=== PATIENT | female | born 1990 | race Caucasian/White ===

== ENCOUNTER 2022-08-17 15:46 | Emergency (ER) | payer OTHER, SELFPAY ==
--- NOTE | ~2022-08-17 | CT_ITS ---
EXAMINATION: CT HEAD WITHOUT CONTRAST CT CERVICAL SPINE WITHOUT CONTRAST CLINICAL INFORMATION: Seizure COMPARISON: None TECHNIQUE: A noncontrast CT of the head and a noncontrast CT of the cervical spine with sagittal and coronal reformats. This CT examination was performed using dose optimization techniques as appropriate, variously including the following: *Automated exposure control *Adjustment of mA and/or kV according to patient size (this includes techniques or standardized protocols for targeted exams where dose is matched to indication/reason for exam; i.e. extremities or head) *Use of iterative reconstruction technique DLP: 1310 FINDINGS: No intra-axial or extra-axial hemorrhage. No acute territorial infarct. Ventricles and sulci appear normal. Preservation of vazquez-white matter differentiation. No mass, mass effect, or midline shift. No fracture. The mastoid air cells and visualized paranasal sinuses are clear. Normal alignment of the cervical spine. No fracture. No prevertebral soft tissue swelling. CT/CT head/brain wo IV con IMPRESSION: No acute intracranial abnormality. No cervical spine fracture or traumatic subluxation.
--- NOTE | ~2022-08-17 | CT_ITS ---
EXAMINATION: CT HEAD WITHOUT CONTRAST CT CERVICAL SPINE WITHOUT CONTRAST CLINICAL INFORMATION: Seizure COMPARISON: None TECHNIQUE: A noncontrast CT of the head and a noncontrast CT of the cervical spine with sagittal and coronal reformats. This CT examination was performed using dose optimization techniques as appropriate, variously including the following: *Automated exposure control *Adjustment of mA and/or kV according to patient size (this includes techniques or standardized protocols for targeted exams where dose is matched to indication/reason for exam; i.e. extremities or head) *Use of iterative reconstruction technique DLP: 1310 FINDINGS: No intra-axial or extra-axial hemorrhage. No acute territorial infarct. Ventricles and sulci appear normal. Preservation of vazquez-white matter differentiation. No mass, mass effect, or midline shift. No fracture. The mastoid air cells and visualized paranasal sinuses are clear. Normal alignment of the cervical spine. No fracture. No prevertebral soft tissue swelling. CT/CT cervical spine wo IV con IMPRESSION: No acute intracranial abnormality. No cervical spine fracture or traumatic subluxation.
[2022-08-17 16:54] VITALS: BP 125/78; PULSE 69; RESP 18; TEMP 37.7; O2SAT 97; BMI 31.3
--- NOTE | 2022-08-17 18:13 | ECG_ITS ---
Test Reason : WEAKNESS Blood Pressure : / mmHG Vent. Rate : 065 BPM Atrial Rate : 065 BPM P-R Int : 126 ms QRS Dur : 102 ms QT Int : 442 ms P-R-T Axes : 045 037 030 degrees QTc Int : 459 ms Normal sinus rhythm Low voltage QRS RSR' or QR pattern in V1 suggests right ventricular conduction delay Otherwise normal ECG No previous ECGs available Referred By: Generic ED Physician Electronically Signed By:KAYLAN GONSALVES MD
[2022-08-17 18:57] LABS: MANUAL DIFF FLAG NO
[2022-08-17 19:11] LABS: Basophils Absolute Auto 0.1 X10*3/uL (0.0-0.2); Basophils Percent Auto 0.4 % (0-2); Eosinophils Absolute Auto 0.1 X10*3/uL (0.0-0.4); Eosinophils Percent Auto 0.7 % (0-4); Hematocrit 39.9 % (37.0-47.0); Hemoglobin 13.3 g/dl (12.0-16.0); Imm Gran Abs Auto 0.09 X10*3/uL (0.00-0.03); Imm Gran Pct Auto 0.8 % (0.0-0.4); Lymphocytes Absolute Auto 2.7 X10*3/uL (1.2-4.9); Lymphocytes Percent Auto 22.7 % (20-40); Mean Corpuscular HGB Conc 33.3 g/dl (31.0-35.0); Mean Corpuscular Volume 80.9 fL (80.0-98.0); Mean Platelet Volume 10.3 fL (9.4-12.3); Monocytes Absolute Auto 0.7 X10*3/uL (0.1-1.2); Monocytes Percent Auto 5.5 % (2-11); Neutrophils Absolute Auto 8.2 x10*3/uL (2.0-8.3); Neutrophils Percent Auto 69.9 % (45-73); Platelet Count 275 X10*3/uL (160-400); Red Blood Count 4.93 X10*6/uL (4.20-5.50); Red Cell Distribution Width 13.1 % (11.0-16.0); White Blood Count 11.7 X10*3/uL (4.8-10.8)
[2022-08-17 19:19] LABS: Alanine Aminotransferase 15 U/L (0-31); Albumin Level 4.8 g/dL (3.5-5.0); Alkaline Phosphatase 67 U/L (39-117); Anion Gap 16 (12-20); Aspartate Amino Transferase 19 U/L (5-31); Bilirubin Direct < 0.2 mg/dL (0.0-0.5); Bilirubin Total 0.3 mg/dL (0.0-1.0); Blood Urea Nitrogen 9 mg/dL (9-16); Calcium 9.1 mg/dL (8.4-10.2); Carbon Dioxide 24 mmol/L (22-29); Chloride 101 mmol/L (96-108); Creatinine Clr Calc Pharmacy 120.8; Estimated Glomerular Filt Rate > 60; Glucose Random 97 mg/dL (60-115); Lipase 12 U/L (8-78); Potassium 3.7 mmol/L (3.3-5.1); Sodium 137 mmol/L (135-145); Total Protein 7.4 g/dL (6.5-8.0)
[2022-08-17 19:22] LABS: Troponin-I High Sensitivity < 3.5 ng/L (<3.5-17.0)
--- OUTSIDE RECORDS SUMMARY | 2022-08-17 23:45 | XMS_ITS ---
:1990 Author Care Team Providers Name Role Phone Anuja Orozco Primary Care Provider Unavailable Allergies Code Code System Name Reaction Severity Status Onset NKDA ? Medications Name Status Start Date Stop Date ? ? ketorolac 60 mg/2 mL intramuscular solution Active ? Not available Inject 2 mL every day by intramuscular route for 1 day. metronidazole 0.75 % (37.5 mg/5 gram) vaginal gel Completed ? 05/22/2020 naproxen 500 mg tablet Active ? Not avail able TAKE 1 TABLET(S) TWICE A DAY BY ORAL ROUTE NEEDED FOR 14 DAY S. Problems Name Status Onset Date Source ? Chronic Depression Active 05/22/2020 ? Epilepsy Active 05/22/2020 ? Acute Low Back Pain Active 05/22/2020 ? Procedures None recorded. Results Lab Results None recorded. Past Encounters None recorded. Social History Tobacco Smoking Status Never Smoker Vaccine List None recorded. Plan of Care Reminders Provider Appointments None recorded. ? ? Lab None recorded. ? ? Referral None recorded. ? ? Procedures None recorded. ? ? Surgeries None recorded. ? ? Imaging None recorded. ? ? Vitals Blood Pressure 108/65 mm[Hg]
== END 2022-08-18 01:06 | disposition left against medical advice (07) ==
PROVIDERS: Emergency Provider Emergency Medicine
DX: R56.9 Unspecified convulsions (principal); S09.93XA Unspecified injury of face, initial encounter; X58.XXXA Exposure to other specified factors, initial encounter; M25.512 Pain in left shoulder; M25.511 Pain in right shoulder; F41.9 Anxiety disorder, unspecified; F32.A Depression, unspecified; Z79.899 Other long term (current) drug therapy; Y93.84 Activity, sleeping; Y92.038 Other place in apartment as the place of occurrence of the external cause; Y99.9 Unspecified external cause status
CPT/HCPCS: 36415; 70450; 72125; 80053; 82248; 83690; 84484; 85025; 93005; 99283; 99284

== ENCOUNTER 2022-09-13 12:42 | Outpatient (REF) | payer OTHER, SELFPAY ==
--- NOTE | 2022-09-13 12:51 | EEG_ITS ---
PROCEDURE PERFORMED: 24-hour ambulatory EEG. Waking background activity consists of a well-defined, moderate voltage 10 hertz posterior alpha frequency intermixed anteriorly with low-voltage fast frequencies. Drowsiness is characterized by diffuse theta slowing. During sleep, symmetrical frontal central spindles, vertex sharp transients, and K complexes are noted. During deeper stages of sleep, delta frequencies are noted. Arousals are frequent as the patient slept on an off, and they were unremarkable. On a couple of occasions, sharp configuration alpha frequency activities noted in the left temporal region of questionable significance. IMPRESSION: This 24-hour ambulatory EEG is essentially normal except for rare episodes of sharp configuration alpha frequency discharges from the left temporal region that may suggest minimal cerebral irritability. These findings are not developed well enough to be diagnostic for a seizure disorder. Clinical correlation is suggested. MD JUAN Brannon/MARYBETH / [id number]
== END 2022-09-13 12:43 | disposition home or self-care (01) ==
LOC: HO.NEURO 12:42
PROVIDERS: Visit Provider Psychiatry & Neurology Neurology
DX: G40.909 Epilepsy, unspecified, not intractable, without status epilepticus (principal)
CPT/HCPCS: 95708; 95957

== ENCOUNTER 2022-10-09 11:58 | Outpatient (REF) | payer OTHER, SELFPAY ==
[2022-10-09 13:08] LABS: Valproate 40.7 mcg/mL (50.0-100.0)
[2022-10-09 13:34] LABS: Alanine Aminotransferase 12 U/L (0-31); Albumin Level 4.5 g/dL (3.5-5.0); Alkaline Phosphatase 70 U/L (39-117); Aspartate Amino Transferase 15 U/L (5-31); Bilirubin Direct < 0.2 mg/dL (0.0-0.5); Bilirubin Total 0.3 mg/dL (0.0-1.0); Total Protein 7.2 g/dL (6.5-8.0)
== END 2022-10-09 11:59 | disposition home or self-care (01) ==
LOC: HO.LAB 11:58
PROVIDERS: Visit Provider Psychiatry & Neurology Neurology
DX: G40.909 Epilepsy, unspecified, not intractable, without status epilepticus (principal); Z79.899 Other long term (current) drug therapy
CPT/HCPCS: 36415; 80076; 80164

== ENCOUNTER 2022-11-08 11:58 | Outpatient (REF) | payer OTHER, SELFPAY | END 2022-11-08 11:59 | disposition home or self-care (01) | LOC: HO.LAB 11:58 | PROVIDERS: PCP Nurse Practitioner Family; Visit Provider Psychiatry & Neurology Neurology | DX: G40.909 Epilepsy, unspecified, not intractable, without status epilepticus (principal); Z79.899 Other long term (current) drug therapy | CPT/HCPCS: 36415; 80164 ==

== ENCOUNTER 2023-09-25 13:16 | Outpatient (REF) | payer OTHER, SELFPAY ==
[2023-09-28 15:43] LABS: Lamotrigine Lamictal 4.4 mcg/mL (2.5-15.0)
== END 2023-09-25 13:17 | disposition home or self-care (01) ==
LOC: HO.LAB 13:16
PROVIDERS: Visit Provider Registered Nurse
DX: G40.909 Epilepsy, unspecified, not intractable, without status epilepticus (principal); Z79.899 Other long term (current) drug therapy
CPT/HCPCS: 36415; 80175

== ENCOUNTER 2024-03-13 12:52 | Outpatient (AMB) | payer OTHER, SELFPAY ==
[2024-03-13 12:56] VITALS: BP 128/58; PULSE 71; RESP 18; O2SAT 96; BMI 36.9
--- NOTE | 2024-03-13 12:56 | A.OFFPC_ITS ---
Vital Signs 03/13/24 12:56 03/13/24 13:29 Height 5 ft 6 in Weight 228 lb 8 oz BMI 36.9 BP 128/58 L 100/64 Blood Pressure Location Lt brachial Lt brachial Position Sitting Respiration 18 Pulse 71 Pulse Source Pulse Oximeter Pulse Oximetry (%) 96 Oxygen Delivery Method Room Air Intake Visit Reasons: Establish Care Intake Note: Patient is here as a new patient, looking to establish care, she needs thyroid medicine, has not had any in 2 years. Is last menstrual period known: Yes Last menstrual period: 03/12/24 Allergies No Known Allergies Allergy (Verified 03/13/24 13:22) Medication List - Last Reviewed 03/13/24 by Nicole Lutz, GARTH etonogestrel (Nexplanon) subdermal lamotrigine 100 mg PO BID levothyroxine 50 mcg PO DAILY Tobacco use date assessed: 03/13/24 Dental Screening Dental Screen Date: 03/13/24 Did you have a dental visit in the last 12 months?: Yes Did you have a dental problem in the last 6 months where you did not have access to dental care?: No Was dental information given to patient?: Patient has dentist HPI HPI Comments History of Present Illness Details New patient Prior PCP:?[facility], [facility] Last office visit/labs/CPE: About 2 years Acute issue(s): Hyperthyroidism -She is on levothyroxine 50 mcg daily Epilepsy - She is on Lamotrigine 100mg BID. Expe rienced grand mal seizure 2 year ago Anxiety and depression -She was on hydroxyzine Sertraline until 2 years ago -She has been doing weekly telemedicine psychotherapy for the past 3 years She reports controlled anxiety and depression. She notes recent stressors d/t lung cancer diagnosis of her father, yesterday, and other personal and family stressors She that she has been eating significant amount of unhealthy foods and snacks and have not been able to resist the urge to eat for the past 6 years. She has gained about 48 lb in the past 8-9 years PMHx: Epilepsy, hyperthyroidism, anxiety, depression SurgHx: [place] teeth extraction FHx: Mom: Diabetes, obesity, depression. Dad: Lung cancer, substance use disorder SocHx: Does not smoke cigarettes. Does not drink alcohol. No recreational drugs. 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 1. Little interest or pleasure in doing things: more than half the days 2. Feeling down, depressed, or hopeless: several days 3. Trouble falling or staying asleep, or sleeping too much: more than half the days 4. Feeling tired or having little energy: nearly every day 5. Poor appetite or overeating: nearly every day 6. Feeling bad about yourself - or that you are a failure or have let yourself or your family down: nearly every day 7. Trouble concentrating on things, such as reading the newspaper or watching television: not at all 8. Moving or speaking so slowly that other people could have noticed. Or the opposite - being so fidgety or restless that you have been moving around a lot more than usual: not at all 9. Thoughts that you would be better off or of hurting yourself in some way: not at all Total score: 14 Depression Screening Interpretation: Positive Depression Screening Follow-up: Existing condition and In treatment Depression Screening Done: Yes Source: Developed by Drs. Kevin Mares, Maddison Dias, Michael Urena and colleagues, with an educational cooper from [employer]. Thrive Questionnaire Date Thrive assessed: 03/13/24 I am a: Patient What is your living situation today?: I have a steady place to live Within the past 12 months, did the food you bought not last and you didn't have the money to get more?: Never true Within the past 12 months, did you worry whether your food would run out before you got money to buy more?: Never true Do you have trouble paying for medicines?: No Do you have trouble getting transportation to medical appointments?: No Do you have trouble paying your heating and electricity bill?: No Do you have trouble taking care of your child, family member or friend?: No Do you have trouble with day-to-day activities such as bathing, preparing meals, shopping, managing finances, etc.?: No Are you currently unemployed and looking for a job?: Yes Are you interested in more education?: No THRIVE Score: 0 AUDIT C Alcohol Use Questionnaire (AUDIT-C) 1. How often do you have a drink containing alcohol?: Never 3. How often do you have six or more drinks on one occasion?: Never Total Score: 0 SAMANTHA-7 AMB Questionnaire SAMANTHA-7 Date SAMANTHA - 7 assessed: 03/13/24 Feeling nervous, anxious, or on edge: 3 = Nearly every day Not being able to stop or control worryin = More than half the days Worrying too much about different things: 2 = More than half the days Trouble relaxin = Nearly every day Being so restless that it is hard to sit still: 1 = Several days Becoming easily annoyed or irritable: 0 = Not at all Feeling afraid as if something awful might happen: 0 = Not at all Total SAMANTHA-7 score (0-4 normal; 5-9 mild; 10-14 moderate; 15-21 severe): 11 Source: Developed by Drs. Kevin Mares, Maddison Dias, Michael Urena and colleagues, with an educational cooper from [employer]. Review of Systems Const Details: Const Denies chills, Denies fatigue, Denies fever(s), Denies headache(s) and Denies weakness ENT Denies dizziness and Denies headache(s) Card Denies chest pain, Denies lightheadedness, Denies dyspnea and Denies other (Palpitations) Resp Denies cough, Denies dyspnea, Denies wheezing and Denies other ( shortness of br eath) GI Denies abdominal pain, Denies melena, Denies hematochezia, Denies change in bowel habits, Denies dyspepsia and Denies nausea Denies hematuria and Denies dysuria Musc Denies abnormal gait, Denies myalgias, Denies arthralgias, Denies numbness and Denies tingling Skin/Breast Denies rash, Denies unusual bruising and Denies wounds Neuro Denies abnormal gait, Denies dizziness, Denies headache(s), Denies memory loss, Denies numbness, Denies Sensory deficit (Neuro), Denies tingling and Denies weakness Psych Denies anxiety, Denies depression, Denies memory loss Endo Denies cold intolerance, Denies fatigue, Denies heat intolerance, Denies polydipsia and Denies polyuria Aller/Immun Denies wheezing Physical exam (Primary Care) Vital Signs: Last Vital Signs Pulse 71 03/13/24 12:56 Resp 18 03/13/24 12:56 BP 100/64 03/13/24 13:29 Pulse Ox 96 03/13/24 12:56 Oxygen Delivery Method Room Air 03/13/24 12:56 BMI result Body Mass Index 36.9 Tobacco/Smoking Status: Tobacco use Status Tobacco use date assessed 03/13/24 03/13/24 13:26 Patient Tobacco Use Status Never used Tobacco 03/13/24 13:26 e-Cigarette/Vaping Use Never Used 03/13/24 13:26 PHQ-9: PHQ-9 Score PHQ-9: Total score 14 03/13/24 13:26 Depression Screening Interpretation: Positive Depression Screening Follow-up: Existing condition and In treatment Thrive Assessment: Date of Thrive Assessment Date Thrive assessed 03/13/24 03/13/24 13:26 Const Other: General: no acute distress and well developed Nutritional Appearance: well nourished Orientation/consciousness: patient oriented x3 HENMT Head: Yes normocephalic and Yes atraumatic Eyes General: appearance normal, both eyes and all related structures Pupils: Equal, round and reactive pupils present EOM: EOMs intact bilaterally Resp Effort & Inspection: normal respiratory effort Auscultation: clear to auscultation bilaterally Cardio Rate: regular rate Rhythm: regular rhythm Heart sounds: S1 normal heart sound present, S2 normal heart sound present, no gallops, no murmurs and no rubs GI Palpation (GI): No Abdominal aortic bruit present, Soft to palpation, nontender, No hepatosplenomegaly present and No Rebound tenderness present Auscultation: normal bowel sounds General: Yes no CVA tenderness Back/Spine/Pelvis Back: no CVA tenderness Cervical Spine: cervical ROM normal and No Cervical spine tenderness Thoracic/Lumbar Spine: thoraco-lumbar ROM normal, No pain with thoraco-lumbar ROM, No thoracic spinal tenderness and No lumbar spinal tenderness Extrem General: Yes normal to inspection, No edema and No calf tenderness Skin General: warm and dry. Normal skin color. Normal skin turgor Neuro General: patient oriented x3, gait normal and no focal neuro deficit Cranial nerves: Yes Equal, round and reactive pupils present Cognition (Neuro): normal cognition Gait exam (Neuro): Normal gait present Sensory Exam: No Sensory deficit (Neuro) Psych Appearance: grossly normal Affect: normal affect Attitude: cooperative Thought process: Normal thought process present Assessment and Plan Assessment & Plan (1) Epilepsy: Code(s): G40.909 - Epilepsy, unspecified, not intractable, without status epilepticus Plan: History of epilepsy. Had grand mal seizure 2 year ago She is on lamotrigine 100 mg twice daily; encouraged to continue to take as prescribed She has not been followed by nephrology in a long time Follow-up in 1 month for an extended physical exam and labs review or return sooner with symptoms or concerns Verbalized understanding and agreed with treatment plan (2) Anxiety and depression: Code(s): F41.9 - Anxiety disorder, unspecified; F32.A - Depression, unspecified Plan: Reports stressors due to recent lung cancer diagnosis of her father and other family and personal stressors; otherwise anxiety and depression symptoms are well-controlled She sees a therapist weekly Declines medication treatment at this time Encouraged to continue weekly therapy Routine exercise encouraged Return with worsening or new symptoms Verbalized understanding and agreed with treatment plan (3) Obesity (BMI 30-39.9): Code(s): E66.9 - Obesity, unspecified Plan: Reports uncontrolled eating of large portions of unhealthy foods. She has not been able to lose weight and has gained 48 lb in the past several years Encouraged to discuss her eating habit during psychotherapy sessions Referred to [facility] dietitian/nutrition Healthy diet, small portion foods sizes, and routine exercise encouraged Follow-up with worsening or new symptoms Verbalized understanding and agreed with the plan (4) Hypothyroidism: Code(s): E03.9 - Hypothyroidism, unspecified Plan: No acute symptoms Continue to take levothyroxine 50 mcg daily Will check TSH/T4 levels make changes as needed Verbalized understanding and agreed with treatment plan (5) Laboratory tests ordered as part of a complete physical exam (CPE): Code(s): Z00.00 - Encounter for general adult medical examination without abnormal findings Plan: Fasting labs ordered in preparation of a complete physical exam. Advised to fast for at least 10 hours before getting labs drawn. May drink water Verbalized understanding and agreed with treatment plan. Orders: Orders Complete Blood Count Auto Diff Today Z00.00 - Encounter for general adult medical examination without abnormal findings Comprehensive [place]. Panel Fast Today Z00.00 - Encounter for general adult medical examination without abnormal findings Lipid Panel Today Z00.00 - Encounter for general adult medical examination without abnormal findings TSH reflex Free T4 Today Z00.00 - Encounter for general adult medical examination without abnormal findings UA CC w/rflx Micro + Cult Today Z00.00 - Encounter for general adult medical examination without abnormal findings Referrals Nutrition/Dietitian Referral E66.9 - Obesity, unspecified Coding Level of Care Code New Pt Level 4 (71788) Complex EM visit Add On G2211 Diagnoses Epilepsy G40.909 Anxiety and depression F41.9; F32.A Obesity (BMI 30-39.9) E66.9 Hypothyroidism E03.9 Laboratory tests ordered as part of a complete physical exam (CPE) Z00.00
[2024-03-13 13:29] VITALS: BP 100/64
== END 2024-03-13 13:52 | disposition home or self-care (01) ==
PROVIDERS: PCP Family Medicine; Visit Provider Nurse Practitioner Family
DX: G40.909 Epilepsy, unspecified, not intractable, without status epilepticus (principal); F41.9 Anxiety disorder, unspecified; Z68.36 Body mass index [BMI] 36.0-36.9, adult; E66.9 Obesity, unspecified; F32.A Depression, unspecified; E03.9 Hypothyroidism, unspecified
CPT/HCPCS: 99204; G2211

== ENCOUNTER 2024-03-18 12:34 | Outpatient (AMB) | payer OTHER, SELFPAY ==
[2024-03-18 13:01] VITALS: BMI 36.7
--- NOTE | 2024-03-18 13:01 | A.OFFVIS_ITS ---
VS Expanded 03/18/24 13:01 03/18/24 13:08 Height 5 ft 6 in 5 ft 6 in Weight 227 lb 8.273 oz 227 lb BMI 36.7 36.6 Intake Visit Reasons: Obesity Allergies No Known Allergies Allergy (Verified 03/13/24 13:22) Nutrition Presentation Details: Pt presents for MNT for obesity. The Pt was referred by PCP, Angel Pollard, NEVIN Monitoring Most Recent Diabetes Results: Creatinine 0.78 mg/dL (0.5-1.4) 08/17/22 Blood Urea Nitrogen 9 mg/dL (9-16) 08/17/22 Sodium 137 mmol/L (135-145) 08/17/22 Potassium 3.7 mmol/L (3.3-5.1) 08/17/22 Chloride 101 mmol/L (96-108) 08/17/22 Carbon Dioxide 24 mmol/L (22-29) 08/17/22 Calcium 9.1 mg/dL (8.4-10.2) 08/17/22 AST 15 U/L (5-31) 10/09/22 ALT 12 U/L (0-31) 10/09/22 Total Protein 7.2 g/dL (6.5-8.0) 10/09/22 Albumin 4.5 g/dL (3.5-5.0) 10/09/22 [id number].Jeor Equation Height: 5 ft 6 in Weight: 227 lb Resting Metabolic Rate: 1753.02 Calculated Activity Level: Mild Activity Calories Needed to Maintain Weight: 2410.40 Diagnosis Nutrition problem #1: food nutri know defi As related to (etiology) #1: diagnosis As evidenced by (sign/symptom) #1: knowledge deficit of diet [facility] Medical History (Updated 03/13/24 @ 15:08 by Rodri Stevens CNP) Hypothyroidism Surgical History (Updated 03/13/24 @ 13:05 by Nicole Lutz CMA) [place] teeth removed Family History (Updated 03/13/24 @ 13:09 by Nicole Lutz CMA) Mother Diabetes Depression Overweight Mental health disorder Father Lung cancer Substance use disorder Social History (Updated 03/13/24 @ 13:15 by Nicole Lutz CMA) Household Members: Family Both parents involved: No Caregiver staying overnight: No Housing: Apartment Are you a primary foster care worker to a 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: Yes Do you presently have visiting nurse or other home services: No 75 years or older and lives alone: No Alcohol intake: former Patient Tobacco Use Status: Never used Tobacco e-Cigarette/Vaping Use: Never Used Special brigette needs: No Current occupational status: unemployed Cognitive needs: No Hearing needs: No Vision needs: No Assessment & Plan Assessment & Plan (1) Obesity (BMI 30-39.9): Code(s): E66.9 - Obesity, unspecified Category: Medical Plan: Wt: 103 Kg ( 02/2024 ) Est kcal needs as per MSJ: 2400 (40% carb, 30% protein/fat) Est fluid needs as per 25-30 ml/d: 3100 Est prot per day as per 1 g/kg bw: 103 Recommend fiber intake : 8-10 g per day and gradually increase to 25-28 g per day for women and 35-38 g for men or as tolerated Recommend sodium intake per day : less than 1500 mg less than 2000 mg Educated patient on: ( R = reviewed V = verbalizes understanding N/R = needs review N/A = not applicable * Food sources of carbohydrate, adequate serving sizes and its role in various health conditions: R * Differences between complex carbohydrates a simple carbohydrates, role of fiber in diet: R V N/R * Lean protein sources of foods: R * Differences between types of fats and role in diet (mono on saturated fat fatty acids, saturated fatty acids, trans fats): R V N/R * Food sources of sodium in salt and healthy modifications for heart health in kidney health: R V R/V * Vitamins and minerals: R V N/R * Healthy plate method concept: R * Physical activity: Benefits a precaution: R V N/R Patient Instructions: Work on meal schedule , 3 meals a day , reducing on total carb to 80 g or less per meal following healthy plate method practice mindful eating strategies Coding Level of Care Code Nutr Indiv Intake (18275) Diagnoses Obesity (BMI 30-39.9) E66.9 Time Spent (min) 30
[2024-03-26 22:05] VITALS: BMI 36.6
== END 2024-03-18 13:31 | disposition home or self-care (01) ==
PROVIDERS: PCP Family Medicine; Visit Provider Dietitian, Registered
DX: E66.9 Obesity, unspecified (principal)

== ENCOUNTER → 2024-03-18 12:34 | Outpatient (BNVA) | payer OTHER, SELFPAY | PROVIDERS: PCP Family Medicine; Visit Provider Dietitian, Registered | DX: E66.9 Obesity, unspecified (principal); Z68.36 Body mass index [BMI] 36.0-36.9, adult; Z71.3 Dietary counseling and surveillance | CPT/HCPCS: 97802 ==

== ENCOUNTER 2024-05-04 11:44 | Outpatient (AMB) | payer OTHER, SELFPAY ==
[2024-05-04 12:33] VITALS: BMI 34.9
--- NOTE | 2024-05-04 12:33 | A.OFFVIS_ITS ---
VS Expanded 05/04/24 12:33 Height 5 ft 6 in Weight 216 lb 7.903 oz BMI 34.9 Intake Visit Reasons: OBESITY/CONFIRMED Allergies No Known Allergies Allergy (Verified 03/13/24 13:22) Nutrition Presentation Details: Pt presents for MNT for obesity Pt reports doing well, working on diet modifications, educing on sugars. Reports feeling great takes a multivitamin Pt reports goal weight is 180 lbs BS Monitoring Most Recent Diabetes Results: Creatinine 0.78 mg/dL (0.5-1.4) 08/17/22 Blood Urea Nitrogen 9 mg/dL (9-16) 08/17/22 Sodium 137 mmol/L (135-145) 08/17/22 Potassium 3.7 mmol/L (3.3-5.1) 08/17/22 Chloride 101 mmol/L (96-108) 08/17/22 Carbon Dioxide 24 mmol/L (22-29) 08/17/22 Calcium 9.1 mg/dL (8.4-10.2) 08/17/22 AST 15 U/L (5-31) 10/09/22 ALT 12 U/L (0-31) 10/09/22 Total Protein 7.2 g/dL (6.5-8.0) 10/09/22 Albumin 4.5 g/dL (3.5-5.0) 10/09/22 [facility] Medical History (Updated 03/13/24 @ 15:08 by Rodri Stevens CNP) Hypothyroidism Surgical History (Updated 03/13/24 @ 13:05 by Nicole Lutz CMA) [place] teeth removed Family History (Updated 03/13/24 @ 13:09 by Nicole Lutz CMA) Mother Diabetes Depression Overweight Mental health disorder Father Lung cancer Substance use disorder Social History (Updated 03/13/24 @ 13:15 by Nicole Lutz CMA) Household Members: Family Both parents involved: No Caregiver staying overnight: No Housing: Apartment 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 Do you presently have visiting nurse or other home services: No 75 years or older and lives alone: No Alcohol intake: former Patient Tobacco Use Status: Never used Tobacco e-Cigarette/Vaping Use: Never Used Special brigette needs: No Current occupational status: unemployed Cognitive needs: No Hearing needs: No Vision needs: No Assessment & Plan Assessment & Plan (1) Obesity (BMI 30-39.9): Code(s): E66.9 - Obesity, unspecified Category: Medical Plan: Wt: 103 Kg ( 02/2024 ) 98 kg (04/2024) Est kcal needs as per MSJ: 2400 (40% carb, 30% protein/fat) Est fluid needs as per 25-30 ml/d: 3000 Est prot per day as per 1 g/kg bw: 98 Recommend fiber intake : 8-10 g per day and gradually increase to 25-28 g per day for women and 35-38 g for men or as tolerated Recommend sodium intake per day : less than 1500 mg less than 2000 mg Educated patient on: ( R = reviewed V = verbalizes understanding N/R = needs review N/A = not applicable * Food sources of carbohydrate, adequate serving sizes and its role in various health conditions: R * Differences between complex carbohydrates a simple carbohydrates, role of fiber in diet: R * Lean protein sources of foods: R * Differences between types of fats and role in diet (mono on saturated fat fatty acids, saturated fatty acids, trans fats): R V N/R * Food sources of sodium in salt and healthy modifications for heart health in kidney health: R V R/V * Vitamins and minerals: R * Healthy plate method concept: R * Physical activity: Benefits a precaution: R Patient Instructions: Engage in physical activity, start with 10 min and gradually increase to 30-45 min or as tolerated Continue following healthy plat emethod as established Coding Level of Care Code Nutr Indiv Subseq (06610) Diagnoses Obesity (BMI 30-39.9) E66.9 Time Spent (min) 30
== END 2024-05-04 12:57 | disposition home or self-care (01) ==
PROVIDERS: PCP Family Medicine; Visit Provider Dietitian, Registered
DX: E66.9 Obesity, unspecified (principal)

== ENCOUNTER → 2024-05-04 11:44 | Outpatient (BNVA) | payer OTHER, SELFPAY | PROVIDERS: PCP Family Medicine; Visit Provider Dietitian, Registered | DX: E66.9 Obesity, unspecified (principal); Z68.34 Body mass index [BMI] 34.0-34.9, adult; Z71.3 Dietary counseling and surveillance | CPT/HCPCS: 97803 ==

== ENCOUNTER 2024-08-31 11:36 | Outpatient (AMB) | payer OTHER, SELFPAY ==
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
[2024-08-31 12:18] VITALS: BP 113/56; PULSE 98; RESP 14; TEMP 36.6; O2SAT 98; BMI 34.9
== END 2024-08-31 13:02 | disposition home or self-care (01) ==
LOC: HO.HMCFM 11:37
PROVIDERS: PCP Family Medicine; Visit Provider Family Medicine
DX: Z00.00 Encounter for general adult medical examination without abnormal findings (principal); R10.9 Unspecified abdominal pain; E03.9 Hypothyroidism, unspecified

== ENCOUNTER → 2024-08-31 11:36 | Outpatient (BNVA) | payer OTHER, SELFPAY | PROVIDERS: PCP Family Medicine; Visit Provider Family Medicine | DX: Z00.01 Encounter for general adult medical examination with abnormal findings (principal); R10.9 Unspecified abdominal pain; E03.9 Hypothyroidism, unspecified | CPT/HCPCS: 96127; 99395 ==

== ENCOUNTER 2024-09-09 08:29 | Outpatient (REF) | payer OTHER, SELFPAY ==
[2024-09-09 08:51] LABS: MANUAL DIFF FLAG NO
[2024-09-09 09:08] LABS: Basophils Percent Auto 0.5 % (0-2); Eosinophils Absolute Auto 0.1 X10*3/uL (0.0-0.4); Eosinophils Percent Auto 1.9 % (0-4); Hematocrit 37.7 % (37.0-47.0); Hemoglobin 12.7 g/dl (12.0-16.0); Imm Gran Abs Auto 0.02 X10*3/uL (0.00-0.03); Imm Gran Pct Auto 0.3 % (0.0-0.4); Lymphocytes Absolute Auto 2.1 X10*3/uL (1.2-4.9); Lymphocytes Percent Auto 28.8 % (20-40); Mean Corpuscular HGB Conc 33.7 g/dl (31.0-35.0); Mean Corpuscular Hemoglobin 28.2 pg (27.0-33.0); Mean Corpuscular Volume 83.8 fL (80.0-98.0); Mean Platelet Volume 9.9 fL (9.4-12.3); Monocytes Absolute Auto 0.4 X10*3/uL (0.1-1.2); Neutrophils Absolute Auto 4.7 x10*3/uL (2.0-8.3); Neutrophils Percent Auto 63.5 % (45-73); Platelet Count 249 X10*3/uL (160-400); Red Cell Distribution Width 12.9 % (11.0-16.0); White Blood Count 7.4 X10*3/uL (4.8-10.8)
[2024-09-09 09:35] LABS: Alanine Aminotransferase 19 U/L (0-31); Albumin Level 4.4 g/dL (3.5-5.0); Alkaline Phosphatase 73 U/L (39-117); Anion Gap 12 (12-20); Aspartate Amino Transferase 21 U/L (5-31); Bilirubin Total 0.4 mg/dL (0.0-1.0); Blood Urea Nitrogen 9 mg/dL (9-16); Calcium 8.8 mg/dL (8.4-10.2); Carbon Dioxide 26 mmol/L (22-29); Chloride 104 mmol/L (96-108); Cholesterol 163 mg/dL (<200); Estimated Glomerular Filt Rate > 60; Glucose Fasting 100 mg/dL (60-99); HDL Cholesterol 45 mg/dL (>40); LDL Cholesterol Calculated 102 mg/dL (<100); Potassium 3.7 mmol/L (3.3-5.1); Sodium 138 mmol/L (135-145); Total Protein 6.8 g/dL (6.5-8.0); Triglycerides 81 mg/dL (<150)
[2024-09-09 09:54] LABS: Appearance Urine Clear; Color Urine Yellow; Glucose Urine UA Negative (Negative); Leukocyte Esterase Urine Negative (Negative); Nitrite Urine Negative (Negative); Urine Blood Negative (Negative); Urine Ketones Negative (Negative); Urine Protein Negative (Neg-Trace)
[2024-09-09 09:54] LABS: Lactate Dehydrogenase 168 U/L (122-220); TSH reflex Free T4 6.03 uIU/mL (0.32-4.0); Thyroid Stimulating Hormone 6.04 uIU/mL (0.32-4.0)
[2024-09-09 11:44] LABS: Creatinine Urine 151.31 mg/dL; Microalbumin Urine < 5.0 mg/L
[2024-09-11 00:43] LABS: Triiodothyronine T3 Total 140 ng/dL (76-181)
== END 2024-09-09 08:30 | disposition home or self-care (01) ==
LOC: HO.LAB 08:29
PROVIDERS: Nurse Practitioner Family; PCP Family Medicine; Visit Provider Family Medicine
DX: Z00.00 Encounter for general adult medical examination without abnormal findings (principal); E03.9 Hypothyroidism, unspecified; I10 Essential (primary) hypertension
CPT/HCPCS: 36415; 80053; 80061; 81003; 82043; 82570; 83615; 84439; 84443; 84480; 85025

== ENCOUNTER → 2024-09-21 13:36 | Outpatient (BNVA) | payer OTHER, SELFPAY | PROVIDERS: PCP Family Medicine; Visit Provider Family Medicine ==

== ENCOUNTER → 2024-09-21 13:36 | Outpatient (AMB) | payer OTHER, SELFPAY ==
--- NOTE | 2024-09-21 13:34 | MHC.PC.OV ---
Intake Visit Reasons: fu labs Allergies No Known Allergies Allergy (Verified 09/21/24 13:35) Tobacco use date assessed: 03/13/24 Dental Screening Dental Screen Date: 03/13/24 HPI fu labs HPI Details Patient?presents?to?follow-up?on?lab?work History?of?hypothyroidism.??She?is?taking?levothyroxine?50?mcg?daily.??TSH?was?6.03?which?is?elevated. She?also?had?mildly?elevated?LDL?cholesterol?and?borderline?fasting?blood?sugar Her?other?labs?were?okay Patient?feels?well.??No?new?complaints [facility] Medical History (Updated 08/31/24 @ 12:51 by Philip Sandoval) Hypothyroidism Surgical History (Updated 03/13/24 @ 13:05 by Nicole Lutz CMA) [place] teeth removed Family History (Updated 03/13/24 @ 13:09 by Nicole Lutz CMA) Mother Diabetes Depression Overweight Mental health disorder Father Lung cancer Substance use disorder Social History (Updated 03/13/24 @ 13:15 by Nicole Lutz CMA) Household Members: Family Housing: Apartment 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 Kevin Mares, Maddison Dias, Michael Urena and colleagues, with an educational cooper from [employer]. Review of Systems Const Denies chills, Denies fatigue, Denies fever(s), Denies headache(s) and Denies weakness ENT Denies dizziness and Denies headache(s) Card Denies chest pain, Denies lightheadedness, Denies dyspnea and Denies other (Palpitations) Resp Denies cough, Denies dyspnea, Denies wheezing and Denies other ( shortness of breath) Musc Denies numbness and Denies tingling Neuro Denies dizziness, Denies headache(s), Denies numbness, Denies tingling, Denies paresthesias and Denies weakness Psych Denies anxiety and Denies depression Endo Denies fatigue Aller/Immun Denies wheezing Physical exam (Primary Care) Tobacco/Smoking Status: Tobacco use Status Tobacco use date assessed 03/13/24 09/21/24 13:36 Patient Tobacco Use Status Never used Tobacco 09/21/24 13:36 e-Cigarette/Vaping Use Never Used 09/21/24 13:36 Thrive Assessment: Date of Thrive Assessment Date Thrive assessed 08/31/24 09/21/24 13:36 Telehealth Telehealth Telehealth Platform: Telephone Location of provider rendering services: practice address Location of patient: address on file Patient Identification confirmed using: Name, : Yes Telehealth method: voice only Patient verbally consented to treatment: Yes Patient verbally consented to billing insurance company: Yes Patient informed of any privacy concerns related to visit: Yes Minutes spent on Phone/Video with Pt.: 6 Coding Level of Care Code Tele Est Pt Level 2 (84131) Diagnoses Hypothyroidism E03.9 Laboratory tests ordered as part of a complete physical exam (CPE) Z00.00 Assessment & Plan Assessment & Plan (1) Hypothyroidism: Code(s): E03.9 - Hypothyroidism, unspecified Category: Medical Plan: Patient?takes?levothyroxine?50?mcg?daily. TSH?is?slightly?over?6 Will?have?her?recheck?this?in?about?a?month We?discussed?that?if?it?is?still?elevated, we?should?adjust?her?medication (2) Laboratory tests ordered as part of a complete physical exam (CPE): Code(s): Z00.00 - Encounter for general adult medical examination without abnormal findings Category: Medical Plan: We?also?reviewed?that?she?had?mild?elevation?in?her?LDL?cholesterol?and?her?fasting?blood?sugar?is?borderline. Will?repeat?these?subsequent?to?adjusting?her?medication?or?seeing?that?her?TSH?level?is?back?within?range.
== END ==
LOC: HO.HMCFM 13:36
PROVIDERS: PCP Family Medicine; Visit Provider Family Medicine
DX: E03.9 Hypothyroidism, unspecified (principal); Z00.00 Encounter for general adult medical examination without abnormal findings

== ENCOUNTER 2025-01-22 09:29 | Outpatient (AMB) | payer OTHER, SELFPAY ==
--- NOTE | 2025-01-22 09:31 | A.OFFPC_ITS ---
Vital Signs 3 01/22/25 09:36 Height 5 ft 6 in Weight 215 lb 6 oz BMI 34.8 BP 98/66 Blood Pressure Location Rt brachial Position Sitting Respiration 12 Pulse 59 Pulse Source Pulse Oximeter Temp 97.2 F Temp Source Oral Pulse Oximetry (%) 99 Oxygen Delivery Method Room Air Intake Visit Reasons: BREAST CONCERNS Intake Note: Patient c/o shooting px on right breast and also having discharge from both nipples x 3 weeks Health Care Consultant Required: No Allergies No Known Allergies Allergy (Verified 01/22/25 09:50) Medication List - Last Reconciled 01/22/25 by Shayy Mckeon, STRIP MACHINE TENDER-BC etonogestrel (Nexplanon) subdermal lamotrigine 100 mg PO BID levothyroxine 50 mcg PO DAILY 90 days Tobacco use date assessed: 01/22/25 Dental Screening Dental Screen Date: 01/22/25 Did you have a dental visit in the last 12 months?: Yes Did you have a dental problem in the last 6 months where you did not have access to dental care?: No Was dental information given to patient?: Patient has dentist HPI HPI Comments 2 History of Present Illness0 Details - The patient is a 34-year-old female pr esenting with breast pain and bilateral nipple discharge. Onset: 3 weeks Appearance: like pus, mucousy, milky. Denies blood Spontaneous or provoked: provoked unilateral or bilateral: bilat trauma: denies amenorrhea, hot flashes: denies Fever or chills: Denies Family hx: denies Breast pain px shooting in [place] for years Has never had breast imaging done however does state breast exam 2 years ago; told of leaking duct - There is no current or breas tfeeding explaining the discharge, and she denies recent breast stimulation. - Family history indicates a sister with an unspecified breast condition but no detailed familial breast cancer history known. - Current emotional stress due to a rece nt paternal loss is noted, potentially influencing health. Discussion I discussed the patient's symptoms, including the bilateral nipple discharge and breast pain. We addressed the potential for hormonal imbalances or benign breast conditions as underlying causes, and I explained the plan for diagnostic workup with imaging, such as a diagnostic mammogram. Blood panels to check hormone levels, including thyrotropin (TSH) for her thyroid status and prolactin levels, as well as a test (hCG), despite the patient's denial of being , were suggested to rule out physiological causes. I informed her about avoiding any unnecessary stimulation of the breasts to prevent exacerbating the discharge. I reviewed the process for accessing her results through the patient portal and the need for accurate contact information to receive timely updates. Additionally, I clarified the steps necessary at the director of front office for coordinating imaging appointments and laboratory testing. The patient was encouraged to avoid manipulating or applying pressure to her breasts in the meantime. Results: Tsh and HCG normal Prolactin pending along w mammo A&P 1. R Breast Pain: The right breast pain may be related to an underlying benign condition, with diagnostic imaging pending via a mammogram for structural assessment. 2. Nipple Discharge: Bilateral discharge necessitates hormonal workup with tests for prolactin, thyroid function, and status, coupled with pet counselor to avoid stimulating the breast area. Total time spent caring for the patient today was 30 minutes. This includes time spent before the visit reviewing the chart, time spent during the visit, and time spent after the visit on documentation, reviewing laboratory results, diagnostic imaging, medications, performing a medically necessary evaluation, counseling on diagnoses, care coordination, ordering appropriate tests, ordering appropriate medications, review of tests performed by other providers, reporting test results with the patient, communication with other healthcare providers. [facility] Medical History (Updated 01/22/25 @ 09:58 by Shayy Mckeon [facility]) Hypothyroidism Surgical History (Updated 03/13/24 @ 13:05 by Nicole Lutz CMA) [place] teeth removed Family History (Updated 03/13/24 @ 13:09 by Nicole Lutz CMA) Mother Diabetes Depression Overweight Mental health disorder Father Lung cancer Substance use disorder Social History (Updated 03/13/24 @ 13:15 by Nicole Lutz CMA) Household Members: Family Housing: Apartment Are you a primary medicare biller to a 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: Yes Do you presently have visiting nurse or other home services: No Alcohol intake: former Patient Tobacco Use Status: Never used Tobacco e-Cigarette/Vaping Use: Never Used Special brigette needs: No Current occupational status: unemployed Cognitive needs: No Hearing needs: No Vision needs: No Questionnaire PHQ-9 Over the last 2 weeks, how often have you been bothered by any of the following problems? 1. Little interest or pleasure in doing things: more than half the days 2. Feeling down, depressed, or hopeless: several days 3. Trouble falling or staying asleep, or sleeping too much: more than half the days 4. Feeling tired or having little energy: several days 5. Poor appetite or overeating: nearly every day 6. Feeling bad about yourself - or that you are a failure or have let yourself or your family down: several days 7. Trouble concentrating on things, such as reading the newspaper or watching television: not at all 8. Moving or speaking so slowly that other people could have noticed. Or the opposite - being so fidgety or restless that you have been moving around a lot more than usual: not at all 9. Thoughts that you would be better off or of hurting yourself in some way: not at all Total score: 10 Depression Screening Interpretation: Positive Depression Screening Follow-up: Existing condition Depression Screening Done: Yes 82012 - PHQ-9 Billing: Yes Source: Developed by Drs. Kevin Mares, Maddison Dias, Michael Urena and colleagues, with an educational cooper from [employer]. Thrive Questionnaire Date Thrive assessed: 01/22/25 I am a: Patient What is your living situation today?: I have a steady place to live Within the past 12 months, did the food you bought not last and you didn't have the money to get more?: Never true Within the past 12 months, did you worry whether your food would run out before you got money to buy more?: Never true Do you have trouble paying for medicines?: No Do you have trouble getting transportation to medical appointments?: No Do you have trouble paying your heating and electricity bill?: No Do you have trouble taking care of your child, family member or friend?: No Do you have trouble with day-to-day activities such as bathing, preparing meals, shopping, managing finances, etc.?: No Are you currently unemployed and looking for a job?: I choose not to answer this question Are you interested in more education?: No Please select the resources that you would like help with: None Currently or been in a relationship where the following occur: No concerns reported THRIVE Score: 0 AUDIT C Alcohol Use Questionnaire (AUDIT-C) 1. How often do you have a drink containing alcohol?: Never 3. How often do you have six or more drinks on one occasion?: Never Total Score: 0 Score Reviewed/Action Taken: Yes SAMANTHA-7 AMB Questionnaire SAMANTHA-7 Date SAMANTHA - 7 assessed: 01/22/25 Feeling nervous, anxious, or on edge: 1 = Several days Not being able to stop or control worryin = Several days Worrying too much about different things: 1 = Several days Trouble relaxin = Several days Being so restless that it is hard to sit still: 1 = Several days Becoming easily annoyed or irritable: 0 = Not at all Feeling afraid as if something awful might happen: 0 = Not at all Total SAMANTHA-7 score (0-4 normal; 5-9 mild; 10-14 moderate; 15-21 severe): 5 Source: Developed by Drs. Kevin Mares, Maddison Dias, Michael Urena and colleagues, with an educational cooper from [employer]. SAMANTHA-7 Assessment Billing SAMANTHA-7 Assessment Tool: SAMANTHA-7 Assessment 00485 Physical exam (Primary Care) Vital Signs: Last Vital Signs Temp 97.2 F 01/22/25 09:36 Pulse 59 01/22/25 09:36 Resp 12 01/22/25 09:36 BP 98/66 01/22/25 09:36 Pulse Ox 99 01/22/25 09:36 Oxygen Delivery Method Room Air 01/22/25 09:36 BMI result Body Mass Index 34.8 BMI Assessment/Plan discussion: High BMI High, discussed plan: lifestyle Tobacco/Smoking Status: Tobacco use Status Tobacco use date assessed 01/22/25 01/22/25 09:37 Patient Tobacco Use Status Never used Tobacco 01/22/25 09:37 e-Cigarette/Vaping Use Never Used 01/22/25 09:37 PHQ-9: PHQ-9 Score PHQ-9: Total score 10 01/22/25 09:55 Depression Screening Interpretation: Positive Depression Screening Follow-up: Existing condition Thrive Assessment: Date of Thrive Assessment Date Thrive assessed 01/22/25 01/22/25 09:37 Currently or been in a relationship where the following occur: No concerns reported Chest Other: Nipples WNL, no drainage, Skin intact, no redness. Symmetrical breasts. Chest palpation & inspection: normal inspection of the chest Breast/axilla inspection: normal inspection of the breasts and normal inspection of the axillae Breast/axilla palpation: normal palpation of the axillae, no axillary lymphadenopathy and abnormal palpation of the breast (see below ) Chest/axillae images: 2 1. Tenderness on palp w/ no masses appreciated 2. Tenderness on palp w/ no masses appreciated Results Reviewed Results Reviewed: RUN: 01/22/25 9357 PAGE 1 [facility] [address] [place] [id number] Telephone Installer: Larry Doty M.D. Specimen Inquiry L Name: Safia Gibbs Age/Sex: 34/F : 1990 Unit#: [id number] Attend Dr: Shayy Mckeon Re01/22/25 Status: REG REF Location: [facility] isch: SPEC : [id number] [place]: 01/22/25 STATUS: COMP REQ : [id number] RECD: 01/22/25-[address]: Shayy MckeonPAMADO COMP: 01/22/25-151 ENTERED: 01/22/25-[address]: ORDERED: TSH Rflx, HCG Quant Test Result Flag Reference TSH 2.81 0.32-4.0 uIU/mL HCG Quant < 2 mIU/mL Weeks post LMP Approximate hCG (Last Menstrual Period) Range (mIU/ml) 3 - 4 weeks 9 - 130 4 - 5 weeks 75 - 2,600 5 - 6 weeks 850 - 20,800 6 - 7 weeks 4000 - 100,200 7 - 12 weeks 11,500 - 289,000 12 - 16 weeks 18,300 - 137,000 16 - 29 weeks (2nd trimester) 1,400 - 53,000 29 - 41 weeks (3rd trimester) 940 - 60,000 The Felipe B-hCG assay is used for the early detection of ; it cannot be used to diagnose any condition unrelated to . If a B-hCG level is not supported by the clinical evidence, results should be confirmed by an alternative method (qualitative urine hCG, for example). Coding Level of Care Code Est Pt Level 4 (35846) Complex EM visit Add On G2211 Diagnoses Discharge of breast N64.52 Mastalgia in female N64.4 Obesity (BMI 30-39.9) E66.9 Additional Codes SAMANTHA-7 Assessment Billing - SAMANTHA-7 Assessment Tool: SAMANTHA-7 Assessment 85460 ([id number]) PHQ-9 - 90579 - PHQ-9 Billing: Yes ([id number]) Assessment & Plan Assessment & Plan (1) Discharge of breast: Code(s): N64.52 - Nipple discharge Category: Medical (2) Mastalgia in female: Code(s): N64.4 - Mastodynia Category: Medical (3) Obesity (BMI 30-39.9): Code(s): E66.9 - Obesity, unspecified Category: Medical Plan . Orders: Orders 2 TSH reflex Free T4 Today N64.4 - Mastodynia, N64.52 - Nipple discharge MM diagnostic mammo BI Today N64.4 - Mastodynia, N64.52 - Nipple discharge Prolactin Today N64.4 - Mastodynia, N64.52 - Nipple discharge HCG Quantitative Today N64.52 - Nipple discharge Patient Instructions: - Do not manipulate or stimulate your breasts or nipples. - Visit the director of front office to arrange a diagnostic mammogram. - Complete suggested bloodwork today; thyroid and hormone levels will be checked. - Sign up for the patient portal to access future test results. - Follow any instructions provided by the imaging center for breast imaging. - Reach out if there are any changes in your symptoms or if new symptoms develop.
[2025-01-22 09:36] VITALS: BP 98/66; PULSE 59; RESP 12; TEMP 36.2; O2SAT 99; BMI 34.8
== END 2025-01-22 10:05 | disposition home or self-care (01) ==
LOC: HO.HMCFM 09:30
PROVIDERS: PCP Family Medicine; Visit Provider Nurse Practitioner Family
DX: N64.52 Nipple discharge (principal); N64.4 Mastodynia; E66.9 Obesity, unspecified; Z68.34 Body mass index [BMI] 34.0-34.9, adult

== ENCOUNTER → 2025-01-22 09:29 | Outpatient (BNVA) | payer OTHER, SELFPAY | PROVIDERS: PCP Family Medicine; Visit Provider Nurse Practitioner Family | DX: N64.4 Mastodynia (principal); N64.52 Nipple discharge; E66.9 Obesity, unspecified; Z68.34 Body mass index [BMI] 34.0-34.9, adult | CPT/HCPCS: 96127; 99212 ==

== ENCOUNTER 2025-01-22 10:46 | Outpatient (REF) | payer OTHER, SELFPAY ==
[2025-01-22 15:11] LABS: HCG Quantitative < 2 mIU/mL; TSH reflex Free T4 2.81 uIU/mL (0.32-4.0)
[2025-01-23 05:59] LABS: Prolactin 5.2 ng/mL
== END 2025-01-22 10:47 | disposition home or self-care (01) ==
LOC: HO.WFDLDS 10:46
PROVIDERS: Visit Provider Nurse Practitioner Family
DX: N64.52 Nipple discharge (principal); N64.4 Mastodynia
CPT/HCPCS: 36415; 84146; 84443; 84702

== ENCOUNTER 2025-01-29 11:24 | Outpatient (AMB) | payer OTHER, SELFPAY ==
--- NOTE | 2025-01-29 11:59 | A.OFFPC_ITS ---
Vital Signs 01/29/25 12:06 Height 5 ft 6 in Weight 217 lb 6 oz BMI 35.1 BP 90/60 Blood Pressure Location Rt brachial Position Sitting Respiration 16 Pulse 68 Pulse Source Pulse Oximeter Temp 98.3 F Temp Source Oral Pulse Oximetry (%) 98 Oxygen Delivery Method Room Air Intake Visit Reasons: Sleeping Problems Intake Note: patient is scheduled for mental health issues Railroad Detective Required: No Allergies No Known Allergies Allergy (Verified 01/29/25 12:05) Medication List - Last Reconciled 01/29/25 by Larry Richardson MD etonogestrel (Nexplanon) subdermal lamotrigine 100 mg PO BID levothyroxine 50 mcg PO DAILY 90 days Tobacco use date assessed: 01/22/25 Dental Screening Dental Screen Date: 01/22/25 HPI Sleeping Problems HPI Details 34 y/o female presents today with compla ints of sleeping difficulties. Last TSH level checked 01/22/25. TSH improved from 6.03 to 2.81. She is on levothyroxine 50 mcg daily. She has a mammogram coming up later this month. She has had complaints of breast pain, discharge of breast. She notes shooting pain into abdomen. This has been intermittent x2 years. She notes difficulty sleeping due to stress/mood. Has difficulty falling asleep. She has a therapist. She is on lamotrigine for hx of epilepsy. 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 1. Little interest or pleasure in doing things: not at all 2. Feeling down, depressed, or hopeless: nearly every day 3. Trouble falling or staying asleep, or sleeping too much: several days 4. Feeling tired or having little energy: several days 5. Poor appetite or overeating: several days 6. Feeling bad about yourself - or that you are a failure or have let yourself or your family down: more than half the days 7. Trouble concentrating on things, such as reading the newspaper or watching television: not at all 8. Moving or speaking so slowly that other people could have noticed. Or the opposite - being so fidgety or restless that you have been moving around a lot more than usual: several days 9. Thoughts that you would be better off or of hurting yourself in some way: not at all Total score: 9 Depression Screening Interpretation: Positive Depression Screening Done: Yes 77534 - PHQ-9 Billing: Yes Source: Developed by Drs. Kevin Mares, Maddison Dias, Michael Urena and colleagues, with an educational cooper from [employer]. Thrive Questionnaire Date Thrive assessed: 01/22/25 I am a: Patient What is your living situation today?: I have a steady place to live Within the past 12 months, did the food you bought not last and you didn't have the money to get more?: Never true Within the past 12 months, did you worry whether your food would run out before you got money to buy more?: Never true Do you have trouble paying for medicines?: No Do you have trouble getting transportation to medical appointments?: No Do you have trouble paying your heating and electricity bill?: No Do you have trouble taking care of your child, family member or friend?: No Do you have trouble with day-to-day activities such as bathing, preparing meals, shopping, managing finances, etc.?: No Are you currently unemployed and looking for a job?: I choose not to answer this question Are you interested in more education?: No Please select the resources that you would like help with: None Currently or been in a relationship where the following occur: No concerns r eported THRIVE Score: 0 AUDIT C Alcohol Use Questionnaire (AUDIT-C) 2. How many drinks containing alcohol do you have on a typical day when you are drinking?: 1 or 2 3. How often do you have six or more drinks on one occasion?: Never Total Score: 0 SAMANTHA-7 AMB Questionnaire SAMANTHA-7 Date SAMANTHA - 7 assessed: 01/29/25 Feeling nervous, anxious, or on edge: 2 = More than half the days Not being able to stop or control worryin = More than half the days Worrying too much about different things: 1 = Several days Trouble relaxin = More than half the days Being so restless that it is hard to sit still: 1 = Several days Becoming easily annoyed or irritable: 1 = Several days Feeling afraid as if something awful might happen: 0 = Not at all Total SAMANTHA-7 score (0-4 normal; 5-9 mild; 10-14 moderate; 15-21 severe): 9 Source: Developed by Drs. Kevin Mares, Maddison Dias, Michael Urena and colleagues, with an educational cooper from [employer]. SAMANTHA-7 Assessment Billing SAMANTHA-7 Assessment Tool: SAMANTHA-7 Assessment 13392 Physical exam (Primary Care) Vital Signs: Last Vital Signs Temp 98.3 F 01/29/25 12:06 Pulse 68 01/29/25 12:06 Resp 16 01/29/25 12:06 BP 90/60 01/29/25 12:06 Pulse Ox 98 01/29/25 12:06 Oxygen Delivery Method Room Air 01/29/25 12:06 BMI result Body Mass Index 35.1 Tobacco/Smoking Status: Tobacco use Status Tobacco use date assessed 01/22/25 01/29/25 12:12 Patient Tobacco Use Status Never used Tobacco 01/29/25 12:12 e-Cigarette/Vaping Use Never Used 01/29/25 12:12 PHQ-9: PHQ-9 Score PHQ-9: Total score 9 01/29/25 12:12 Depression Screening Interpretation: Positive Thrive Assessment: Date of Thrive Assessment Date Thrive assessed 01/22/25 01/29/25 12:12 Currently or been in a relationship where the following occur: No concerns repo rted Coding Level of Care Code Est Pt Level 4 (83716) Diagnoses Hypothyroidism E03.9 Difficulty sleeping G47.9 Mastalgia in female N64.4 Discharge of breast N64.52 Anxiety and depression F41.9; F32.A Additional Codes SAMANTHA-7 Assessment Billing - SAMANTHA-7 Assessment Tool: SAMANTHA-7 Assessment 12651 ([id number]) PHQ-9 - 24499 - PHQ-9 Billing: Yes ([id number]) Assessment & Plan Assessment & Plan (1) Hypothyroidism: Code(s): E03.9 - Hypothyroidism, unspecified Category: Medical Plan: Patient?is?taking?levothyroxine?as?prescribed. Recent?lab?work?shows?thyroid?hormone?levels?are?all?within?normal?range Continue?current?medication (2) Difficulty sleeping: Code(s): G47.9 - Sleep disorder, unspecified Category: Medical Plan: Difficulty?falling?asleep?not?staying?asleep. Patient?notes?significant?increased?stressors She?says?that?she?had?a?psychiatrist?in?the?past?who?was?prescribing?sertraline? which?helped?initially.??It?seems?she?was?only?on?about?25?mg?daily. Will?start?sertraline?50?mg?daily?and?consider?increasing?dose?to?75?and?100?mg? daily. Will?follow-up?in?about?a?month. If?she?is?still?having?difficulty?with?we?we?can?discuss?other?medications. (3) Mastalgia in female: Code(s): N64.4 - Mastodynia Category: Medical Plan: Patient?has?ongoing,?intermittent?breast?pain She?has?a?mammogram?scheduled?for?January? We?will?follow-up?on?imaging?in?early?February (4) Discharge of breast: Code(s): N64.52 - Nipple discharge Category: Medical Plan: Prolactin?level?was?within?normal?range Thyroid?levels?were?normal Unclear?cause Will?follow-up?at?next?visit in early February after?mammogram Advised warm?compresses (5) Anxiety and depression: Code(s): F41.9 - Anxiety disorder, unspecified; F32.A - Depression, unspecified Category: Medical Plan: As?above,?starting?sertraline She?notes?that?some?family?members?are?on?Prozac?and?we?can?consider?this?if?she ?does?not?respond?well?with?sertraline. Medications: New sertraline 50 mg PO DAILY 30 days 30 tabs 3RF
[2025-01-29 12:06] VITALS: BP 90/60; PULSE 68; RESP 16; TEMP 36.8; O2SAT 98; BMI 35.1
--- OUTSIDE RECORDS SUMMARY | 2025-01-29 13:23 | XMS_ITS | Data Portability ---
Author Organization [facility] - Toña Garcia s, [address] Address [address] [place] [address] Assessment No assessment recorded. Plan of Treatment Reminders Order Date Submit Date Provider Last Modified By Organization Details Last Modified Time Details Appointments None recorded. Lab None recorded. Referral physical therapist referral - right shoulder pain, suspect impingement 2023 024 [facility] - Liza Mia Aleman, [address] , [address], [place], [address], 4 11:56:22 physical therapist referral - right shoulder muscle strain and biceps tendonitis 2023 024 [facility] 3 At Physical Therapy - [facility], [address], [address], [place], [address], 4 09:25:50 Procedures None recorded. Surgeries None recorded. Imaging XR, shoulder, 2 or more view 2023 024 [facility], [address] [place] [address], [address], 4 09:34:01 Medication Orders naproxen 500 mg tablet 2023 024 [facility] #[id number], [address] [place], [address], 4 09:35:57 cyclobenzap rine 10 mg tablet 2023 024 [facility]acy #2072, [address] [place], [address], 4 09:35:57 methocarbam ol 500 mg tablet 2023 024 [facility], [address] [place], [address], 4 09:25:08 ibuprofen 800 mg tablet 2023 024 [facility], [address] [place], [address], 4 09:25:13 diclofenac sodium 50 mg tablet,nila yed release 2023 024 [facility], [address] [place], [address], 4 09:25:02 cyclobenzap rine 10 mg tablet 2023 024 [facility], [address] [place], [address], 4 09:24:53 Patient TargetsNo targets recorded. Patient Instructions Encounter Date Encounter Id Patient Instructions Last Modified By Organization Details Last Modified Time 07/13/2024 [id number] shoulder pain: care instructions verito Not available 07/13/2024 10:13:31 Reason for Referral Physical Therapist Referral for Biceps tendinitis right shoulder muscle strain and biceps tendonitis Referring Physician: Kerri Turner, Urgent Care, Encounter Date: 04/14/2024 Physical Therapist Referral for Strain of muscle of right shoulder right shoulder pain, suspect impingement Referring Physician: Kenia Allen, Urgent Care, Encounter Date: 07/13/2024 Results Created Date Observation Date Name Description Value Unit Range Abnormal Flag Note LastModifiedBy Organization Detail LastModifiedTime 04/14/20 24 04/14/2024 XR, shoul dale, 2 or more view No observ ation record ed. [email or web address] [facility] [address] [facility] , [place], [address], 04/14/2024 12:44:51 Result Notes None recorded. Problems Name Problem SNOMED Code Status Onset Date Resolution Date Notes Provider Name and Address Organization Details Recorded Time Seizure 46404831 Active Karime paredes, PA - [facility] 4 08:22:25 Depressive disorder 69152156 Active Karime Alegria null, PA - [facility] 4 08:22:45 Anxiety 22504687 Active Karime Alegria null, PA - [facility] 4 08:22:55 Strain of muscle of right shoulder 2154629345639 9105 Active 2023 KENIA ALLEN NP [address] [facility] [address] , [place], [address], [place] - [facility] 4 10:12:18 Tendinitis of right shoulder 4517514050982 101 Active 2023 KENIA ALLEN NP [address] [facility] [facility] [address] , [place], [address], [place] - [facility] 4 10:12:28 Pain of right shoulder joint 0239075380845 9100 Active 2023 Kana An NP [address] , [place], [address], [place] - [facility] 4 09:35:05 Problem Notes None recorded. Procedures Surgical History Date Name Laterality Status Provider Name and Address Organization Details Recorded Time extraction of wisdom tooth completed Karime Alegria PA - [facility] 04/14/2024 08:24:20 Imaging Results Imaging Date Name Status LastModified by Organiz ation Details LastModified Time 04/14/2024 XR, shoulder, 2 or more view completed [id number] [facility] [address], [place], [address], 04/14/2024 12:44:51 Procedure Notes None recorded. Medical Equipment None Reported. Allergies No known drug allergies Medications Name Sig Start Date Stop Date Status Note LastModified by Organization Details LastModified Time cyclobenzap rine 10 mg tablet Take 1 tablet every day by oral route at bedtime for 10 days, for muscle relaxant. 2023 active Not Available Not Available Not Avai lable clindamycin HCl 300 mg capsule TAKE 1 CAPSULE BY MOUTH EVERY 6 HOURS UNTIL FINISHED 04/14 completed Not Available Not Available Not Available Apri 0.15 mg-0.03 mg tablet TAKE 1 TABLET BY MOUTH EVERY DAY 04/14 completed Not Available Not Available Not Available ibuprofen 800 mg tablet TAKE 1 TABLET BY MOUTH EVERY 8 HOURS NEEDED FOR PAIN active Not Available Not Available No t Available sertraline 100 mg tablet TAKE 1 TABLET BY MOUTH DAILY 04/14 completed Not Available Not Available Not Available hydroxyzine HCl 50 mg tablet TAKE 1 TABLET BY MOUTH EVERY DAY NEEDED FOR ANXIETY 04/14 completed Not Available Not Available Not Available divalproex 500 mg tablet,nila yed release TAKE 1 TABLET BY MOUTH EVERY DAY IN THE MORNING AND TAKE 2 TABLETS AT BEDTIME 30 04/14 completed Not Available Not Available Not Available acetaminoph en 500 mg tablet TAKE 2 TABLETS BY MOUTH EVERY 6 HOURS NEEDED FOR PAIN 07/22 completed Not Available Not Available Not Available lamotrigine 25 mg tablet TAKE 1 TABLET BY MOUTH TWICE A DAY FOR 2 WEEKS THEN INCREASE TO 2 TABLETS TWICE A DAY DIRECTED 04/14 completed Not Available Not Available Not Available levothyroxi ne 50 mcg tablet TAKE 1 TABLET BY MOUTH EVERY DAY active Not Available Not Available No t Available diclofenac sodium 50 mg tablet,nila yed release TAKE 1 TABLET TWICE A DAY BY ORAL ROUTE DIRECTED FOR 15 DAYS, FOR TENDONITI S PAIN. 07/22 completed Not Available Not Available Not Available methylpredn isolone 4 mg tablets in a dose pack TAKE 6 TABLETS ON DAY 1 DIRECTED ON PACKAGE AND DECREASE BY 1 TAB EACH DAY FOR A TOTAL OF 6 DAYS 04/14 completed Not Available Not Available Not Available lamotrigine 100 mg tablet TAKE 1 TABLET BY MOUTH TWICE A DAY active Not Available Not Available No t Available naproxen 500 mg tablet Take 1 tablet twice a day by oral route with meal(s) for 10 days, for pain, inflammat ion. 2023 active Not Available Not Available Not Avai lable oxycodone 5 mg tablet TAKE 1 TABLET BY MOUTH EVERY 4 HOURS NEEDED FOR PAIN 04/14 completed Not Available Not Available Not Available Denta 5000 Plus 1.1 % cream USE 2-3X/HOME Y, SPIT OUT EXCESS DO NOT RINSE WITH WATER. NO EATING OR DRINKING FOR 45 MIN AFTER. 04/14 completed Not Available Not Available Not Available chlorhexidi ne gluconate 0.12 % mouthwash SWISH AND SPIT WITH 1 CAPFUL FOR 2 MINUTES 3 TIMES A DAY AFTER MEALS 04/14 completed Not Available Not Available Not Available Vitals Date Recorded Body height Body mass index (BMI) Body weight Pain severity - 0-10 verbal numeric rating [Score] - Reported Respiratory rate Body temperature Oxygen saturation Oxygen saturation in Arterial blood by Pulse oximetry Heart rate Systolic blood pressure Diastolic blood pressure Provider Name and Address Organization Details Last Updated DateTime 4 167.64 cm 36.8 kg/m2 784920. 06 g 9 20 /min 97.8 [degF] 96 % 96 % 99 /min 104 mm[Hg] 75 mm[Hg] Karime Alegria [facility] 4 08:25:54 Date Recorded Body height Body mass index (BMI) Body weight Oxygen saturation Oxygen saturation in Arterial blood by Pulse oximetry Heart rate Respiratory rate Body temperature Systolic blood pressure Diastolic blood pressure Provider Name and Address Organization Details Last Updated DateTime 4 167.64 cm 34.7 kg/m2 58422.3 6 g 98 % 98 % 68 /min 18 /min 97.5 [degF] 112 mm[Hg] 77 mm[Hg] Mis Duarte [facility] 4 09:28:06 Date Recorded Body height Body mass index (BMI) Body weight Oxygen saturation Oxygen saturation in Arterial blood by Pulse oximetry Heart rate Body temperature Systolic blood pressure Diastolic blood pressure Provider Name and Address Organization Details Last Updated DateTime 4 167.64 cm 35.2 kg/m2 62383.1 4 g 99 % 99 % 65 /min 98.5 [degF] 123 mm[Hg] 78 mm[Hg] Loreta Mejia PA - [facility] 4 09:23:06 Social History Question Answer Notes LastModified by Organizat ion Details LastModified Time Tobacco Smoking Status Never Smoker Karime MARTIN Sy - [facility] 04/14/2024 08:23:21 What Is Your Level Of Alcohol Consumption? None Information not available 04/14/2024 Are You Currently Employed? No Information not available 07/22/2024 Have You Had A Flu Shot This Season? Yes Information not available 07/22/2024 If No, Would You Like A Flu Shot Today? Yes Information not available 07/22/2024 What Was The Date Of Your Most Recent Tobacco Screening? 07/13/2024 [email or web address] Information not available 07/13/2024 What Is Your Relationship Status? Other Boyfriend Information not available 04/14/2024 Are You Passively Exposed To Smoke? No Information no t available 07/22/2024 Do You Use Any Illicit Or Recreational Drugs? No Information not available 04/14/2024 Have You Recently Traveled Abroad? No Information not available 04/14/2024 Do You Or Have You Ever Used Any Other Forms Of Tobacco Or Nicotine? No Information not available 04/14/2024 Sex: Unknown Functional Status None recorded. Mental Status None recorded. Family History Relationship Description Onset Age of this Age Resolved Age Notes LastModified by Organization Details LastModified Time Father No current problems or disability Not available 04/14 08:22:58 Mother No current problems or disability Not available 04/14 08:22:58 Medical History No medical history recorded. Gynecological History Statement/Question Response Date of LMP 06/26/2024 LMP Definite Obstetrics History GPAL:G 0 P 0 0 0 0 Past Encounters Encounter ID Performer Location Encounter Start Date Encounter Closed Date Diagnosis/Indication Diagnosis SNOMED-CT Code Diagnosis ICD10 Code Diagnosis Note [id number] [address] [address] 01/02/2019 12:11:04 01/02/2019 14:09:38 [id number] [address] [address] [address] 09/01/2020 14:55:47 09/01/2020 15:48:10 [id number] [address] [facility] [address] [facility] [place] [address] [address] 06/26/2018 09:00:44 06/26/2018 10:07:30 [id number] KERRI [facility]URNER [facility] [address] [facility] [address] [place] [address] 04/14/2024 08:09:50 04/14/2024 09:25:50 Strain of muscle of right shoulder 0020589490 5554031 S46.911A Biceps tendinitis 064577 007 M75.21 Apply ice to injured area for 20 minutes 3 times a day for 3-5 days.Never apply ice pack pad directly against the skin to avoid frostbite. You may use a towel, washcloth, elastic bandage, or layer of clothing to separate the ice pack pad from the skin. [id number] KENIA ALLEN NP [address] [address] 07/13/2024 08:52:46 07/13/2024 10:15:52 Strain of muscle of right shoulder 8636307883 6995635 S46.911A Tendinitis of right shoulder 8841513169 265015 M75.91 [id number] Kana An [place] [address] [address] 07/22/2024 09:01:46 07/22/2024 09:37:26 Pain of right shoulder joint 0043196800 0143555 M25.511 You can hurt your shoulder by using it too much during an activity, such as fishing or baseball. It can also happen as part of the everyday wear and tear of getting older. Shoulder injuries can be slow to heal, but your shoulder should get better with time. Your doctor may recommend a sling to rest your shoulder. If you have injured your shoulder, you may need testing and treatment. How can you care for yourself at home? Take pain medicines exactly as directed. If the doctor gave you a prescripti on medicine for pain, take it as prescribed . If you are not taking a prescripti on pain medicine, ask your doctor if you can take an over-the-c ounter medicine. Do not take two or more pain medicines at the same time unless the doctor told you to. Many pain medicines contain acetaminop hen, which is Tylenol. Too much acetaminop hen (Tylenol) can be harmful. If your doctor recommends that you wear a sling, use it as directed. Do not take it off before your doctor tells you to. Put ice or a cold pack on the sore area for 10 to 20 minutes at a time. Put a thin cloth between the ice and your skin. If there is no swelling, you can put moist heat, a heating pad, or a warm cloth on your shoulder. Some doctors suggest alternatin g between hot and cold. Rest your shoulder for a few days. If your doctor recommends it, you can then begin gentle exercise of the shoulder, but do not lift anything heavy. Health Concerns Section Related Observation LastModified by Organization Detai ls LastModified Time None Recorded Concern Status LastModified by Organization Details LastModified Time None Recorded Advance Directives Directive None Recorded Payers Encounter Date Sequence Insurance Name Policy Number Policy Prakash Covered Member ID Prakash Member ID Guarantor Name 01/02/2019 1 [facility] [id number] [facility] (MEDICAID HMO) BELEN Melendez [id number] Safia Melendez 09/01/2020 1 [facility] [id number] [facility] (MEDICAID HMO) BELEN Melendez [id number] Safia Melendez 04/14/2024 1 [facility] PLAN (MEDICAID HMO) BELEN Melendez [id number] Safia Melendez 07/13/2024 1 [facility] PLAN (MEDICAID HMO) BELEN Melendez [id number] Safia Melendez 07/22/2024 1 [facility] [id number] [facility] (MEDICAID HMO) BELEN Melendez [id number] Safia Melendez Notes Date Note Type Note Provider Name and Address Organization Details Recorded Time 4 text/html 33 yo female c/o right shoulder pain for months with increased intensity over the last 2 weeks. No she has a hard time raising her arm and the pain disrupts he sleep. No recent trauma, surgery, or infection. KERRI TURNER MD [address] [place], [address], [facility] 04/14/2024 09:25:59 4 text/html Shoulder UCReported bypatient.Hand Dominance:right Location:right Quality:sharp Severity:mild; worst pain 6/10 Timing:chronic Context:cannot identify Associated Symptoms:no weakness; no numbness pt is a 33 yo female here with complain of:1. right shoulder pain onset 3 months ago was treated and improved was reffered to PT but did not go because symptoms resolved. The same pain re-occurred a few days agoPt is having decreased ROM2. Decreased hearing to bilateral ears, pt not sure if she has was. Reports no pain and no drainage KENIA ALLEN NP [address] [place], [address], [employer] [facility] 07/13/2024 10:13:54 4 text/html Shoulder UCReported bypatient.source of patient informationInformation obtained from patient; Patient arrived at Urgent Care ambulatory; 33 year old female comes in with repeated injury to right shoulder was getting better now hurting again . already have physical therapy schedule . Hand Dominance:right Location:right; anterior Quality:aching; sharp; frequent; worsening Severity:moderate; pain level 4/10 Duration:days; 2 months Timing:acute Context:lifting; twisting Alleviating Factors:rest Aggravating Factors:lifting; twisting; pushing/pulling; ROM Associated Symptoms:no weakness; no numbness; no tingling; no swelling; no redness; no warmth; no ecchymosis; no catching/locking; no buckling; no grinding; no instability; no radiation down arm; no drainage; no fever; no chills; no weight loss; no change in bowel/bladder habits;popping/clicking Previous InjuryNo prior injury to affected body part Previous Treatmentnone Prior Imaging:none Kana An NP [address] [place], [address], [place] - [facility] 07/22/2024 09:46:15 OBGyn Episode No OBEpisode recorded.
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
== END 2025-01-29 12:39 | disposition home or self-care (01) ==
LOC: HO.HMCFM 11:25
PROVIDERS: PCP Family Medicine; Visit Provider Family Medicine
DX: E03.9 Hypothyroidism, unspecified (principal); G47.9 Sleep disorder, unspecified; N64.4 Mastodynia; N64.52 Nipple discharge; F41.9 Anxiety disorder, unspecified; F32.A Depression, unspecified

== ENCOUNTER → 2025-01-29 11:24 | Outpatient (BNVA) | payer OTHER, SELFPAY | PROVIDERS: PCP Family Medicine; Visit Provider Family Medicine | DX: E03.9 Hypothyroidism, unspecified (principal); G47.9 Sleep disorder, unspecified; N64.4 Mastodynia; N64.52 Nipple discharge; F41.9 Anxiety disorder, unspecified; F32.A Depression, unspecified | CPT/HCPCS: 96127; 99212 ==

== ENCOUNTER 2025-02-19 08:19 | Outpatient (REF) | payer OTHER, SELFPAY ==
--- NOTE | ~2025-02-19 | MM_ITS ---
EXAMINATION: MM DIAGNOSTIC DIGITAL BREAST TOMOSYNTHESIS, BILATERAL Bilateral Limited ultrasound. CLINICAL INFORMATION: Bilateral clear and white nipple discharge. Right breast pain. COMPARISON: Mammography: Comparison is made with relevant prior exams. TECHNIQUE: Digital breast mammography with tomosynthesis is performed in both the craniocaudal and mediolateral oblique views along with computer-aided detection (CAD). FINDINGS: The breasts are heterogeneously dense, which may obscure small masses (ACR BI-RADS breast composition Category c). There are no significant masses, abnormal calcifications, or other abnormalities. Targeted color Doppler ultrasound scanning in the bilateral retroareolar regions areas of patient's pain and white clear nipple discharge demonstrates normal fibronodular breast tissue. There is no sonographic abnormality. Results are provided to the patient at time of visit by the technologist. MM/MM tomosynthesis diagnostic BI IMPRESSION: No mammographic or sonographic abnormality to account for the patient's bilateral retroareolar breast pain and nipple discharge. Recommend clinical evaluation and follow-up. ASSESSMENT: BI-RADS BI-RADS 1 - Negative RECOMMENDATION: 1. Patient should be managed based on the clinical impression. 2. Otherwise, routine annual screening mammography. Clinical evaluation and follow-up. This patient's information was entered into a reminder system with a target due date for their next mammogram. Electronically signed by: Jeniffer Zabala DO 02/19/2025 09:54 AM JOSSY
--- OUTSIDE RECORDS SUMMARY | 2025-02-19 08:25 | XMS_ITS | Data Portability ---
Author Organization [facility] - Toña Garcia s, [address] Address [address] [place] [address] Assessment No assessment recorded. Plan of Treatment Reminders Order Date Submit Date Provider Last Modified By Organization Details Last Modified Time Details Appointments None recorded. Lab None recorded. Referral physical therapist referral - right shoulder pain, suspect impingement 2023 024 [facility] , [address] [facility] [address] , [address], [place], [address], 4 11:56:22 physical therapist referral - right shoulder muscle strain and biceps tendonitis 2023 024 [facility] - [facility], [address], [address], [place], [address], 4 09:25:50 Procedures None recorded. Surgeries None recorded. Imaging XR, shoulder, 2 or more view 2023 024 [facility], [address] [place] [address], [address], 4 09:34:01 Medication Orders naproxen 500 mg tablet 2023 024 [facility] #2072, [address] [place], [address], 4 09:35:57 cyclobenzap rine 10 mg tablet 2023 024 [facility] #2076, [address] [place], [address], 4 09:35:57 methocarbam ol 500 mg tablet 2023 024 [facility], [address] [place], [address], 4 09:25:08 ibuprofen 800 mg tablet 2023 024 [facility], [address] [place], [address], 4 09:25:13 diclofenac sodium 50 mg tablet,nila yed release 2023 024 [facility], [address] [place], [address], 4 09:25:02 cyclobenzap rine 10 mg tablet 2023 024 [facility], [address] [place], [address], 4 09:24:53 Patient TargetsNo targets recorded. Patient Instructions Encounter Date Encounter Id Patient Instructions Last Modified By Organization Details Last Modified Time 07/13/2024 [id number] shoulder pain: care instructions verito Not available [...] more view No observ ation record ed. [id number] [facility] [address] [facility] , [place], [address], 04/14/2024 12:44:51 Result Notes None recorded. Problems Name Problem SNOMED Code Status Onset Date Resolution Date Notes Provider Name and Address Organization Details Recorded Time Seizure 42389170 Active Karime paredes, [place] - [facility] 4 08:22:25 Depressive disorder 79601571 Active Karime Alegria null, PA - [facility] 4 08:22:45 Anxiety 78954912 Active Karime Alegria null, PA - [facility] 4 08:22:55 Strain of muscle of right shoulder 2387369734097 9105 Active 2023 KENIA ALLEN NP [address] [facility] [address] , [place], [address], [place] - [facility] 4 10:12:18 Tendinitis of right shoulder 1150962770788 101 Active 2023 KENIA ALLEN NP [address] [facility] [address] , [place], [address], [place] - [facility] 4 10:12:28 Pain of right shoulder joint 3300827976959 9100 Active 2023 Kana An NP [address] , [place], [address], [place] - [facility] 4 09:35:05 Problem Notes None recorded. Procedures Surgical History Date Name Laterality Status Provider Name and Address Organization Details Recorded Time extraction of wisdom tooth completed Karime Alegria PA - [facility] 04/14/2024 08:24:20 Imaging Results Imaging Date Name Status LastModified by Organiz ation Details LastModified Time 04/14/2024 XR, shoulder, 2 or more view completed [id number] [facility] [address], [place], [address], 04/14/2024 12:44:51 Procedure Notes None recorded. Medical [...] Updated DateTime 4 167.64 cm 36.8 kg/m2 761070. 06 g 9 20 /min 97.8 [degF] 96 % 96 % 99 /min 104 mm[Hg] 75 mm[Hg] Karime Alegria [facility] 4 08:25:54 Date Recorded Body height Body mass index (BMI) Body weight Oxygen saturation Oxygen saturation in Arterial blood by Pulse oximetry Heart rate Respiratory rate Body temperature Systolic blood pressure Diastolic blood pressure Provider Name and Address Organization Details Last Updated DateTime 4 167.64 cm 34.7 kg/m2 82275.3 6 g 98 % 98 % 68 /min 18 /min 97.5 [degF] 112 mm[Hg] 77 mm[Hg] Mis Duarte [facility] 4 09:28:06 Date Recorded Body height Body mass index (BMI) Body weight Oxygen saturation Oxygen saturation in Arterial blood by Pulse oximetry Heart rate Body temperature Systolic blood pressure Diastolic blood pressure Provider Name and Address Organization Details Last Updated DateTime 4 167.64 cm 35.2 kg/m2 68404.1 4 g 99 % 99 % 65 [...] SNOMED-CT Code Diagnosis ICD10 Code Diagnosis Note [id number] [address] [address] 01/02/2019 12:11:04 01/02/2019 14:09:38 [id number] [address] [address] [address] 09/01/2020 14:55:47 09/01/2020 15:48:10 [id number] [address] [facility] [address] [facility] [place] [facility] [address] 06/26/2018 09:00:44 06/26/2018 10:07:30 [id number] KERRI TURNER MD [address] [facility] [address] [place] [address] 04/14/2024 08:09:50 04/14/2024 09:25:50 Strain of muscle of right shoulder 6468038997 9424970 S46.911A Biceps tendinitis 907833 007 M75.21 Apply ice to injured area for 20 minutes 3 times a day for 3-5 days.Never apply ice pack pad directly against the skin to avoid frostbite. You may use a towel, washcloth, elastic bandage, or layer of clothing to separate the ice pack pad from the skin. [id number] KENIA ALLEN NP [address] [address] 07/13/2024 08:52:46 07/13/2024 10:15:52 Strain of muscle of right shoulder 4566516383 8056094 S46.911A Tendinitis of right shoulder 3878412011 934363 M75.91 [id number] [place] [address] [address] 07/22/2024 09:01:46 07/22/2024 09:37:26 Pain of right shoulder joint 8242355442 0717262 M25.511 You can hurt your shoulder by [...] Member ID Guarantor Name 01/02/2019 1 [facility] [employer] [facility] PL[facility] (MEDICAID HMO) BELEN Melendez [id number] Safia Melendez 09/01/2020 1 [facility] [employer] [facility] PL[facility] (MEDICAID HMO) BELEN Melendez [id number] Safia Melendez 04/14/2024 1 [facility] PLAN (MEDICAID HMO) BELEN Melendez [id number] Safia Melendez 07/13/2024 1 [facility] PLAN (MEDICAID HMO) BELEN Melendez [id number] Safia Melendez 07/22/2024 1 [facility] [employer] [facility] PL[facility] (MEDICAID HMO) BELEN Melendez [id number] Safia Melendez Notes Date Note Type Note Provider Name and Address Organization Details Recorded Time 4 text/html 33 yo female c/o right shoulder pain for months with increased intensity over the last 2 weeks. No she has a hard time raising her arm and the pain disrupts he sleep. No recent trauma, surgery, or infection. KERRI TURNER MD [address] [place], [address], [facility] 04/14/2024 09:25:59 4 text/html Shoulder UCReported bypatient.Hand [...] KENIA ALLEN NP [address] [place], [address], [facility] 07/13/2024 10:13:54 4 text/html Shoulder UCReported [...] Prior Imaging:none Kana An NP [address] [place], [address], [place] - [facility] 07/22/2024 09:46:15 OBGyn Episode No OBEpisode recorded.
--- OUTSIDE RECORDS SUMMARY | 2025-02-19 08:25 | XMS_ITS | Clinical Summary ---
Author Organization [facility] ity Address [address] [place] [address] Care Team Providers Care Roofing Contractor Name Role Phone Jose Gutierrez MD Primary Care Provider [phone] Surgical History Surgery Date Site/Laterality Comments OTHER [...] COVID-19 Vaccine ( season) 2024 Influenza Vaccine (Season Ended) 2025 07/23/2018, 2014 Cervical Cancer Screening: Pap Smear 09/10/2025 09/10/2022, [...] age to complete this topic Meningococcal B Vaccine Aged Out No l onger eligible based on patient's age to complete [...] RESULTING AGENCY - 09/13/2022 3:21 PM EST [id number] THINPREP PAP, IMAGED: NEGATIVE FOR SQUAMOUS INTRAEPITHELIAL [...] Recently Relevant to Health Maintenance Care Teams Roofing Contractor Relationship Specialty Start Date End Date Jose Gutierrez MD [address] [facility] [place] [address] PCP - General 09/07/22
== END 2025-02-19 08:20 | disposition home or self-care (01) ==
LOC: HO.MAMMO 08:19
PROVIDERS: PCP Family Medicine; Visit Provider Nurse Practitioner Family
DX: N64.4 Mastodynia (principal); N64.52 Nipple discharge
CPT/HCPCS: 76642; 77062; 77066

== ENCOUNTER → 2025-02-19 08:30 | Outpatient (BNV) | payer OTHER, SELFPAY | PROVIDERS: PCP Family Medicine; Visit Provider Internal Medicine | DX: N64.4 Mastodynia (principal); N64.52 Nipple discharge | CPT/HCPCS: 76642; 77062; 77066 ==

== ENCOUNTER 2025-03-03 10:04 | Outpatient (AMB) | payer OTHER, SELFPAY ==
--- NOTE | 2025-03-03 10:49 | A.OFFPC_ITS ---
Vital Signs 03/03/25 10:55 Height 5 ft 6 in Weight 217 lb BMI 35.0 BP 98/62 Blood Pressure Location Rt brachial Position Sitting Respiration 16 Pulse 87 Pulse Source Pulse Oximeter Temp 98.0 F Temp Source Oral Pulse Oximetry (%) 96 Oxygen Delivery Method Room Air Intake Visit Reasons: f/u depression/anxiety, mammogram Intake Note: patient is scheduled for mamogram follow-up as med review to is how meds are working. Information Interpreted: clinical only Is last menstrual period known: Yes Post menopausal: No Patient : No Followed by:: february 09 Allergies No Known Allergies Allergy (Verified 03/03/25 10:50) Medication List - Last Reconciled 03/03/25 by Larry Richardson MD etonogestrel (Nexplanon) subdermal lamotrigine 100 mg PO BID levothyroxine 50 mcg PO DAILY 90 days sertraline 50 mg PO DAILY 30 days Tobacco use date assessed: 03/03/25 Dental Screening Dental Screen Date: 03/03/25 Did you have a dental visit in the last 12 months?: Yes Did you have a dental problem in the last 6 months where you did not have access to dental care?: No Was dental information given to patient?: No HPI f/u depression/anxiety, mammogram HPI Details 34 y/o female presents to f/u depression /anxiety with difficulty sleeping, mammogram. Has had complaints of breast pain. Breast ultrasound 02/19/25 showed no mammographic or sonographic abnormality to account for pt's bilateral retroareolar breast pain and nipple discharge. PHQ-9 8, SAMANTHA-7 5 today. She is on sertraline 50mg daily. She notes she does not notice much difference on sertraline. She would like to trial something new. HPI Comments History of Present Illness Details Documentation assistance for Larry Richardson MD, was provided by Philip Sandoval,? Technical Documentation Specialist on 03/03/2025 at 11:11 AM JEY. Ronny, Dr. Richardson, have read, observed, and verified documentation. [facility] Medical History (Updated 01/29/25 @ 12:26 by Philip Sandoval) Hypothyroidism Surgical History (Updated 03/13/24 @ 13:05 by Nicole Lutz [facility]) [place] teeth removed Family History (Updated 03/13/24 @ 13:09 by Nicole Lutz [facility]) Mother Diabetes Depression Overweight Mental health disorder Father Lung cancer Substance use disorder Social History (Updated 03/13/24 @ 13:15 by Nicole Lutz [facility]) Household Members: Family Both parents involved: No Caregiver staying overnight: No Housing: Apartment Are you 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 1. Little interest or pleasure in doing things: more than half the days 2. Feeling down, depressed, or hopeless: more than half the days 3. Trouble falling or staying asleep, or sleeping too much: several days 4. Feeling tired or having little energy: several days 5. Poor appetite or overeating: several days 6. Feeling bad about yourself - or that you are a failure or have let yourself or your family down: several days 7. Trouble concentrating on things, such as reading the newspaper or watching television: not at all 8. Moving or speaking so slowly that other people could have noticed. Or the opposite - being so fidgety or restless that you have been moving around a lot more than usual: not at all 9. Thoughts that you would be better off or of hurting yourself in some way: not at all Total score: 8 Depression Screening Interpretation: Positive Depression Screening Done: Yes 18890 - PHQ-9 Billing: Yes Source: Developed by Drs. Kevin Mares, Maddison Dias, Michael Urena and colleagues, with an educational cooper from [employer]. Thrive Questionnaire Date Thrive assessed: 03/03/25 I am a: Patient What is your living situation today?: I have a steady place to live Within the past 12 months, did the food you bought not last and you didn't have the money to get more?: Never true Within the past 12 months, did you worry whether your food would run out before you got money to buy more?: Never true Do you have trouble paying for medicines?: No Do you have trouble getting transportation to medical appointments?: No Do you have trouble paying your heating and electricity bill?: No Do you have trouble taking care of your child, family member or friend?: No Do you have trouble with day-to-day activities such as bathing, preparing meals, shopping, managing finances, etc.?: No Are you currently unemployed and looking for a job?: I choose not to answer this question Are you interested in more education?: No Please select the resources that you would like help with: None Currently or been in a relationship where the following occur: No concerns reported THRIVE Score: 0 SAMANTHA-7 AMB Questionnaire SAMANTHA-7 Date SAMANTHA - 7 assessed: 03/03/25 Feeling nervous, anxious, or on edge: 1 = Several days Not being able to stop or control worryin = Several days Worrying too much about different things: 1 = Several days Trouble relaxin = Not at all Being so restless that it is hard to sit still: 0 = Not at all Becoming easily annoyed or irritable: 1 = Several days Feeling afraid as if something awful might happen: 1 = Several days Total SAMANTHA-7 score (0-4 normal; 5-9 mild; 10-14 moderate; 15-21 severe): 5 Source: Developed by Drs. Kevin Mares, Maddison Dias, Michael Urena and colleagues, with an educational cooper from [employer]. SAMANTHA-7 Assessment Billing SAMANTHA-7 Assessment Tool: SAMANTHA-7 Assessment 07118 Review of Systems Const Denies chills, Denies fatigue, Denies fever(s), Denies headache(s) and Denies weakness ENT Denies dizziness and Denies headache(s) Card Denies dyspnea Resp Denies cough, Denies dyspnea, Denies wheezing and Denies other (shortness of breath) Musc Denies numbness and Denies tingling Neuro Denies dizziness, Denies headache(s), Denies numbness, Denies tingling and Denies weakness Psych Reports anxiety and Reports depression Endo Denies fatigue Aller/Immun Denies wheezing Physical exam (Primary Care) Vital Signs: Last Vital Signs Temp 98.0 F 03/03/25 10:55 Pulse 87 03/03/25 10:55 Resp 16 03/03/25 10:55 BP 98/62 03/03/25 10:55 Pulse Ox 96 03/03/25 10:55 Oxygen Delivery Method Room Air 03/03/25 10:55 BMI result Body Mass Index 35.0 Tobacco/Smoking Status: Tobacco use Status Tobacco use date assessed 03/03/25 03/03/25 11:01 Patient Tobacco Use Status Never used Tobacco 03/03/25 11:01 e-Cigarette/Vaping Use Never Used 03/03/25 11:01 PHQ-9: PHQ-9 Score PHQ-9: Total score 8 03/03/25 11:11 Depression Screening Interpretation: Positive Thrive Assessment: Date of Thrive Assessment Date Thrive assessed 03/03/25 03/03/25 11:01 Currently or been in a relationship where the following occur: No concerns reported Const General: well developed; No acute distress Nutritional Appearance: well nourished Orientation/consciousness: patient oriented x3 HENMT Head: Yes normocephalic and Yes atraumatic Eyes General: appearance normal, both eyes and all related structures Pupils: Equal, round and reactive pupils present EOM: EOMs intact bilaterally Resp Effort & Inspection: normal respiratory effort Neuro General: patient oriented x3 and gait normal Cranial nerves: Yes Equal, round and reactive pupils present Psych Affect: normal affect Coding Level of Care Code Est Pt Level 4 (31170) Diagnoses Anxiety and depression F41.9; F32.A Mastalgia in female N64.4 Discharge of breast N64.52 Screening for cervical cancer Z12.4 Additional Codes SAMANTHA-7 Assessment Billing - SAMANTHA-7 Assessment Tool: SAMANTHA-7 Assessment 73807 ([id number]) PHQ-9 - 63849 - PHQ-9 Billing: Yes ([id number]) Assessment & Plan Assessment & Plan (1) Anxiety and depression: Code(s): F41.9 - Anxiety disorder, unspecified; F32.A - Depression, unspecified Category: Medical Plan: Ongoing?anxiety?and?depression. Sertraline?has?not?helped. She?has?family?members?who?have?benefited?from?fluoxetine?so?we?will?start?that. She?can?take?10?mg?daily?for?about?a?w point lay ira?and?may?titrate?up?to?20?mg?as?tolerated. (2) Mastalgia in female: Code(s): N64.4 - Mastodynia Category: Medical (3) Discharge of breast: Code(s): N64.52 - Nipple discharge Category: Medical (4) Screening for cervical cancer: Code(s): Z12.4 - Encounter for screening for malignant neoplasm of cervix Category: Medical Plan Pain?at?lateral?right?breast?and?also?had?had?discharge. Discharge?seems?to?have?resolved?and?pain?seems?improved Mammogram?and?ultrasound?did?not?show?any?abnormalit ies?or?explanation?for?symptoms. Prior?lab?work?was?unremarkable?as?well. No?further?discharge She?can?use?warm?compresses?and?OTC?pain?medications. She?will?let?me?know?if?worsening?or discharge?rec urs?and?would?consider?referral?to?endocrinology?if?needed. Also?referring?her?to associate school psychologist.??She?is?due?for?cervical?cancer?screen?a?and?can?also?discuss?breast?pain?i f?unresolved. Orders: Referrals MEAT GRINDER Referral Z12.4 - Encounter for screening for malignant neoplasm of cervix Medications: New fluoxetine 20 mg PO DAILY 30 days 30 tabs 3RF Discontinued sertraline Discontinued Reason: Doctor's Order 50 mg PO DAILY 30 days 30 tabs 3RF
[2025-03-03 10:55] VITALS: BP 98/62; PULSE 87; RESP 16; TEMP 36.7; O2SAT 96; BMI 35.0
--- OUTSIDE RECORDS SUMMARY | 2025-03-03 11:16 | XMS_ITS | Data Portability ---
Author Organization MARTIN - Toña Garcia s, [address] Address [address] [place] [address] Assessment No assessment recorded. Plan of Treatment Reminders Order Date Submit Date Provider Last Modified By Organization Details Last Modified Time Details Appointments None recorded. Lab None recorded. Referral physical therapist referral - right shoulder pain, suspect impingement [address] [facility] Physical Therapy - [facility] , [address] , [address], [place], [address], 4 11:56:22 physical therapist referral - right shoulder muscle strain and biceps tendonitis 2023 024 [facility] At Physical Therapy - [facility], [address], [address], [place], [address], 4 09:25:50 Procedures None recorded. Surgeries None recorded. Imaging XR, shoulder, 2 or more view 2023 024 [employer] [facility], [address] [place] [address], [address], 4 09:34:01 Medication Orders naproxen 500 mg tablet 2023 024 [facility][id number], [address] [place], [address], 4 09:35:57 cyclobenzap rine 10 mg tablet 2023 024 [facility] #[id number], [address] [place], [address], 4 09:35:57 methocarbam ol 500 mg tablet 2023 024 [facility] [address] [place], [address], 4 09:25:08 ibuprofen 800 mg tablet 2023 024 [facility], [address] [place], [address], 4 09:25:13 diclofenac sodium 50 mg tablet,nila yed release 2023 024 [id number], [address] [place], [address], 4 09:25:02 cyclobenzap rine 10 mg tablet 2023 024 [facility], [address] [place], [address], 4 09:24:53 Patient TargetsNo targets recorded. Patient Instructions Encounter Date Encounter Id Patient Instructions Last Modified By Organization Details Last Modified Time 07/13/2024 [id number] shoulder pain: care instructions verito Not available 07/13/2024 10:13:31 Reason for Referral Physical Therapist Referral for Biceps tendinitis right shoulder muscle strain and biceps tendonitis Referring Physician: Kerri Damon, Urgent Care, Encounter Date: 04/14/2024 Physical Therapist Referral for Strain of muscle of right shoulder right shoulder pain, suspect impingement Referring Physician: Kenia Allen, Urgent Care, Encounter Date: 07/13/2024 Results Created Date Observation Date Name Description Value Unit Range Abnormal Flag Note LastModifiedBy Organization Detail LastModifiedTime 04/14/20 24 04/14/2024 XR, shoul dale, 2 or more view No observ ation record ed. [email or web address] [facility] [address] , [place], [address], 04/14/2024 12:44:51 Result Notes None recorded. Problems Name Problem SNOMED Code Status Onset Date Resolution Date Notes Provider Name and Address Organization Details Recorded Time Seizure 38106458 Active Karime paredes, [place] - [facility] 4 08:22:25 Depressive disorder 24316722 Active Karime Alegria null, [place] - [facility] 4 08:22:45 Anxiety 74482790 Active Karime Alegria null, [place] - [facility] 4 08:22:55 Strain of muscle of right shoulder 8745693880544 9105 Active 2023 KENIA ALLEN NP [address] [facility] [address] , [place], [address], [place] - [facility] 4 10:12:18 Tendinitis of right shoulder 3706374564620 101 Active 2023 KENIA ALLEN NP [address] [facility] [address] , [place], [address], [place] - [facility] 4 10:12:28 Pain of right shoulder joint 8239937887110 9100 Active 2023 Kana An NP [address] , [place], [address], [place] - [facility] 4 09:35:05 Problem Notes None recorded. Procedures Surgical History Date Name Laterality Status Provider Name and Address Organization Details Recorded Time extraction of wisdom tooth completed Karime Alegria PA - [facility] 04/14/2024 08:24:20 Imaging Results Imaging Date Name Status LastModified by Organiz ation Details LastModified Time 04/14/2024 XR, shoulder, 2 or more view completed [email or web address] [facility] [address], [place], [address], 04/14/2024 12:44:51 Procedure Notes None recorded. Medical [...] Updated DateTime 4 167.64 cm 36.8 kg/m2 484101. 06 g 9 20 /min 97.8 [degF] 96 % 96 % 99 /min 104 mm[Hg] 75 mm[Hg] Karime Alegria [facility] [employer] [facility] 4 08:25:54 Date Recorded Body height Body mass index (BMI) Body weight Oxygen saturation Oxygen saturation in Arterial blood by Pulse oximetry Heart rate Respiratory rate Body temperature Systolic blood pressure Diastolic blood pressure Provider Name and Address Organization Details Last Updated DateTime 4 167.64 cm 34.7 kg/m2 59492.3 6 g 98 % 98 % 68 /min 18 /min 97.5 [degF] 112 mm[Hg] 77 mm[Hg] Mis Duarte [facility] [employer] [facility] 4 09:28:06 Date Recorded Body height Body mass index (BMI) Body weight Oxygen saturation Oxygen saturation in Arterial blood by Pulse oximetry Heart rate Body temperature Systolic blood pressure Diastolic blood pressure Provider Name and Address Organization Details Last Updated DateTime 4 167.64 cm 35.2 kg/m2 94098.1 4 g 99 % 99 % 65 [...] SNOMED-CT Code Diagnosis ICD10 Code Diagnosis Note [id number] [address] [address] [address] 01/02/2019 12:11:04 01/02/2019 14:09:38 [id number] 2099_[facility] [address] [address] 09/01/2020 14:55:47 09/01/2020 15:48:10 [id number] [address] [address] [facility] LUDIN barber [address] 06/26/2018 09:00:44 06/26/2018 10:07:30 [id number] KERRI DAMON MD [facility] [address] [facility] [place] bar[place] [address] 04/14/2024 08:09:50 04/14/2024 09:25:50 Strain of muscle of right shoulder 9899623093 8004794 S46.911A Biceps tendinitis 039110 007 M75.21 Apply ice to injured area for 20 minutes 3 times a day for 3-5 days.Never apply ice pack pad directly against the skin to avoid frostbite. You may use a towel, washcloth, elastic bandage, or layer of clothing to separate the ice pack pad from the skin. [id number] MARTIN ROY [address] [address] 07/13/2024 08:52:46 07/13/2024 10:15:52 Strain of muscle of right shoulder 7548880422 8098529 S46.911A Tendinitis of right shoulder 2571756926 810379 M75.91 [id number] MARTIN ROY [address] [address] 07/22/2024 09:01:46 07/22/2024 09:37:26 Pain of right shoulder joint 7376678913 9230332 M25.511 You can hurt your shoulder by [...] Recorded Advance Directives Directive None Recorded Payers Insurance Date Sequence Insurance Name Policy Number Policy Prakash Covered Member ID Prakash Member ID Guarantor Name 07/22/2024 1 [facility] PLAN (MEDICAID HMO) BELEN Melendez [id number] Safia Melendez Notes Date Note Type Note Provider Name and Address Organization Details Recorded Time 4 text/html 33 yo female c/o right shoulder pain for months with increased intensity over the last 2 weeks. No she has a hard time raising her arm and the pain disrupts he sleep. No recent trauma, surgery, or infection. KERRI DAMON MD [address] [place], [address], [place] - [facility] 04/14/2024 09:25:59 4 text/html Shoulder UCReported bypatient.Hand [...] KENIA ALLEN NP [address] [place], [address], [place] [facility] 07/13/2024 10:13:54 4 text/html Shoulder UCReported [...] Kana An NP [address] [place], [address], [facility] 07/22/2024 09:46:15 OBGyn Episode No OBEpisode recorded.
== END 2025-03-03 11:27 | disposition home or self-care (01) ==
LOC: HO.HMCFM 10:05
PROVIDERS: PCP Family Medicine; Visit Provider Family Medicine
DX: F41.9 Anxiety disorder, unspecified (principal); F32.A Depression, unspecified; N64.4 Mastodynia; N64.52 Nipple discharge; Z12.4 Encounter for screening for malignant neoplasm of cervix

== ENCOUNTER → 2025-03-03 10:04 | Outpatient (BNVA) | payer OTHER, SELFPAY | PROVIDERS: PCP Family Medicine; Visit Provider Family Medicine | DX: F41.9 Anxiety disorder, unspecified (principal); F32.A Depression, unspecified; N64.4 Mastodynia; N64.52 Nipple discharge | CPT/HCPCS: 96127; 99212 ==

== ENCOUNTER 2025-07-20 09:17 | Outpatient (AMB) | payer OTHER, SELFPAY ==
--- NOTE | 2025-07-20 09:32 | MHC.PC.OV ---
Vital Signs 07/20/25 09:36 Height 5 ft 6 in Weight 186 lb 6 oz BMI 30.1 BP 100/58 L Blood Pressure Location Rt brachial Position Sitting Respiration 16 Pulse 67 Pulse Source Pulse Oximeter Temp 97.7 F Temp Source Temporal Artery Scan Pulse Oximetry (%) 96 Oxygen Delivery Method Room Air Intake Visit Reasons: follow-up anxiety /depression Intake Note: Safia presents in the office today for a follow up to anxiety and depression. Would like to discuss her medication and . Is last menstrual period known: Yes (Patient having Nexplanon removed.) Last menstrual period: 07/17/25 Allergies No Known Allergies Allergy (Verified 07/20/25 09:35) Medication List - Last Reconciled 07/20/25 by Larry Richardson MD etonogestrel (Nexplanon) subdermal fluoxetine 40 mg (2 x 20 mg) PO DAILY 90 days lamotrigine 100 mg PO BID 90 days levothyroxine 50 mcg PO DAILY 90 days Tobacco use date assessed: 07/20/25 Dental Screening Dental Screen Date: 07/20/25 Did you have a dental visit in the last 12 months?: Yes Did you have a dental problem in the last 6 months where you did not have access to dental care?: No Was dental information given to patient?: Patient has dentist HPI follow-up anxiety /depression HPI Details 34 y/o female presents to f/u anxiety/depression. Had stopped sertraline and started her on fluoxetine. Pt notes she is doing well on fluoxetine 40mg daily. Notes she wants to talk to her ObGyn about getting . Does have a therapist. Has been exercising more often. [facility] Medical History (Updated 01/29/25 @ 12:26 by Philip Sandoval) Hypothyroidism Surgical History (Updated 03/13/24 @ 13:05 by Nicole Lutz CMA) [place] teeth removed Family History Mother Diabetes Depression Overweight Mental health disorder Father Lung cancer Substance use disorder Social History (Updated 07/20/25 @ 09:36 by Mandi Vann CMA) Household Members: Family Both parents involved: No Caregiver staying overnight: No Housing: Apartment Are you a primary regular senior care provider to a 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: Yes Do you presently have visiting nurse or other home services: No 75 years or older and lives alone: No Alcohol intake: former Patient Tobacco Use Status: Never used Tobacco e-Cigarette/Vaping Use: Never Used Second Hand Smoke Exposure: No Special birgette needs: No service: No Current occupational status: unemployed Current occupational exposures/hazards: No Cognitive needs: No Hearing needs: No Vision needs: No Female Reproductive History Menstrual Date of last menstrual period: 07/17/25 Questionnaire Thrive Questionnaire Date Thrive assessed: 01/22/25 I am a: Patient What is your living situation today?: I have a steady place to live Within the past 12 months, did the food you bought not last and you didn't have the money to get more?: Never true Within the past 12 months, did you worry whether your food would run out before you got money to buy more?: Never true Do you have trouble paying for medicines?: No Do you have trouble getting transportation to medical appointments?: No Do you have trouble paying your heating and electricity bill?: No Do you have trouble taking care of your child, family member or friend?: No Do you have trouble with day-to-day activities such as bathing, preparing meals, shopping, managing finances, etc.?: No Are you currently unemployed and looking for a job?: I choose not to answer this question Are you interested in more education?: No Please select the resources that you would like help with: None Currently or been in a relationship where the following occur: No concerns reported THRIVE Score: 0 SAMANTHA-7 AMB Questionnaire SAMANTHA-7 Date SAMANTHA - 7 assessed: 03/03/25 Source: Developed by Drs. Kevin Mares, Maddison Dias, Michael Urena and colleagues, with an educational cooper from [facility]. Review of Systems Const Denies chills, Denies fatigue, Denies fever(s), Denies headache(s) and Denies weakness ENT Denies dizziness and Denies headache(s) Card Denies dyspnea Resp Denies cough, Denies dyspnea, Denies wheezing and Denies other (shortness of breath) Musc Denies numbness and Denies tingling Neuro Denies dizziness, Denies headache(s), Denies numbness, Denies tingling and Denies weakness Psych Denies anxiety and Denies depression Endo Denies fatigue Aller/Immun Denies wheezing Physical exam (Primary Care) Vital Signs: Last Vital Signs Temp 97.7 F 07/20/25 09:36 Pulse 67 07/20/25 09:36 Resp 16 07/20/25 09:36 BP 100/58 L 07/20/25 09:36 Pulse Ox 96 07/20/25 09:36 Oxygen Delivery Method Room Air 07/20/25 09:36 BMI result Body Mass Index 30.1 Tobacco/Smoking Status: Tobacco use Status Tobacco use date assessed 07/20/25 07/20/25 09:40 Patient Tobacco Use Status Never used Tobacco 07/20/25 09:36 e-Cigarette/Vaping Use Never Used 07/20/25 09:36 Thrive Assessment: Date of Thrive Assessment Date Thrive assessed 01/22/25 07/20/25 09:33 Currently or been in a relationship where the following occur: No concerns reported Const General: well developed; No acute distress Nutritional Appearance: well nourished Orientation/consciousness: patient oriented x3 HENMT Head: Yes normocephalic and Yes atraumatic Eyes General: appearance normal, both eyes and all related structures Pupils: Equal, round and reactive pupils present EOM: EOMs intact bilaterally Resp Effort & Inspection: normal respiratory effort Auscultation: clear to auscultation bilaterally Cardio Rate: regular rate Rhythm: regular rhythm Heart sounds: S1 normal heart sound present, S2 normal heart sound present, no gallops, no murmurs and no rubs Neuro General: patient oriented x3 and gait normal Cranial nerves: Yes Equal, round and reactive pupils present Psych Affect: normal affect Coding Level of Care Code Est Pt Level 4 (23887) Diagnoses Anxiety and depression F41.9; F32.A Hypothyroidism E03.9 Epilepsy G40.909 Assessment & Plan Assessment & Plan (1) Anxiety and depression: Code(s): F41.9 - Anxiety disorder, unspecified; F32.A - Depression, unspecified Category: Medical Plan: Now on fluoxetine 40 mg daily She notes that this dose feels ?just right She will continue this for now. However, she does want to talk to her OBGYN about getting . Currently has Nexplanon. I discussed with her that fluoxetine is not recommended during but is used on a patient to patient bases balance risk and benefits. Advised she discuss with export sales assistant at their upcoming visit. She can discuss me again subsequently. She is also lamotrigine for epilepsy and should discuss with her neurologist. Recommended regular exercise. (2) Hypothyroidism: Code(s): E03.9 - Hypothyroidism, unspecified Category: Medical Plan: She is on levothyroxine TSH in December was within normal limits Will recheck with next blood draw Continue current medication - refilled (3) Epilepsy: Code(s): G40.909 - Epilepsy, unspecified, not intractable, without status epilepticus Category: Medical Plan: History of epilepsy. She is on lamotrigine. Followed by Dr. Adam. Stable. Continue current medication for now. As she is looking to get , she should discuss this medication with her neurologist. Orders: Orders Microalbumin, Random (w Creat) Today I10 - Essential (primary) hypertension Thyroid Stimulating Hormone Today E03.9 - Hypothyroidism, unspecified Free T4 (Free Thyroxine) Today E03.9 - Hypothyroidism, unspecified Comprehensive [place]. Panel Fast Today Z00.00 - Encounter for general adult medical examination without abnormal findings Complete Blood Count Auto Diff Today Z00.00 - Encounter for general adult medical examination without abnormal findings Lipid Panel Today Z00.00 - Encounter for general adult medical examination without abnormal findings Triiodothyronine T3 Total Today E03.9 - Hypothyroidism, unspecified Medications: Refilled levothyroxine 50 mcg PO DAILY 90 tabs 3RF 90 days
[2025-07-20 09:36] VITALS: BP 100/58; PULSE 67; RESP 16; TEMP 36.5; O2SAT 96; BMI 30.1
--- OUTSIDE RECORDS SUMMARY | 2025-07-20 10:55 | XMS_ITS | Clinical Summary ---
Author Organization [facility] ity Address [address] [place] [address] Care Team Providers Care Administrator Social Welfare Name Role Phone Jose Gutierrez MD Primary Care Provider [phone]- [phone] Surgical History Surgery Date Site/Laterality Comments OTHER [...] 11/14/2022 9:55 AM EST Plan of Treatment Upcoming Encounters Date Type Department Care Team (Late st Contact Info) Description 07/26/2025 9:45 AM EDT Procedure visit Obstetrics & Gynecology - [address] [id number] Ruthie Pitt, [address] [place] [address] Health Maintenance Due Date Last Done Comments HIV Screening 09/30/2022 Hepatitis C Screening 09/30/2022 Social Influencers of Health Screening 09/30/2022 Depression Screening 10/28/2024 COVID-19 Vaccine ( season) 2025 Influenza Vaccine (#1) 2025 07/23/2018, 2013 Cervical Cancer Screening: Pap Smear 09/10/2025 09/10/2022, 07/05/2021, 02/19/2018 DTaP,Tdap,and Td Vaccines (9 - Td or Tdap) 06/10/2028 06/10/2018, 03/10/2014, 05/09/2001, Additional history exists RSV Immunization Adult Patients (1 - 1-dose 75+ series) 2065 HIB Vaccines Completed 01/25/1992, 03/28, 1990, Additional [...] 5 Years) and At-Risk Patients (6 to 49 Years) Aged Out No longer eligible based [...] RESULTING AGENCY - 09/13/2022 3:21 PM EST [id number] THINPREP PAP, IMAGED: NEGATIVE FOR SQUAMOUS INTRAEPITHELIAL LESION AND MALIGNANCY . ABUNDANT RED BLOOD CELLS ARE PRESENT. FEDE ALVARENGA(ASCP) (CASE ELECTRONICALLY SIGNED 09 13 2022) RESULT OF APTIMA HIGH RISK HPV ASSAY: HIGH RISK HPV: POSITIVE (SEROTYPES 16,18,31,33,35,39,45,51,52,56,58,59,66,68) RESULTS OF APTIMA HPV 16 AND 18/45 GENOTYPE ASSAY: HPV 16: NEGATIVE HPV 18/45: NEGATIVE COMPLETED ON 2022-09-13 ADEQUACY: SATISFACTORY ENDOCERVICAL/TRANSFORMATION ZONE COMPONENT PRESENT. SOURCE: THINPREP PAP HPV ANY DX: REFLEX 16 AND 18, CERVICAL, IMAGED CLINICAL INFORMATION: HPV ANY DIAGNOSIS. PAP HX NEG HPV POS, [Z12.4] us Angela Edward MD LAB CYTOLOGY ORDERABLES Fin al Result HISTORICAL TESTING LAB RESULTING AGENCY from Last 3 Months or Most Recently Relevant to Health Maintenance Insurance [facility] Care Teams Administrator Social Welfare Relationship Specialty Start Date End Date Jose Gutierrez MD [facility] [address] [place] [id number] PCP - General 09/07/22
== END 2025-07-20 10:15 | disposition home or self-care (01) ==
LOC: HO.HMCFM 09:18
PROVIDERS: PCP Family Medicine; Visit Provider Family Medicine
DX: F41.9 Anxiety disorder, unspecified (principal); F32.A Depression, unspecified; E03.9 Hypothyroidism, unspecified; G40.909 Epilepsy, unspecified, not intractable, without status epilepticus; Z23 Encounter for immunization

== ENCOUNTER → 2025-07-20 09:17 | Outpatient (BNVA) | payer OTHER, SELFPAY | PROVIDERS: PCP Family Medicine; Visit Provider Family Medicine | DX: I10 Essential (primary) hypertension (principal); G40.909 Epilepsy, unspecified, not intractable, without status epilepticus; F41.9 Anxiety disorder, unspecified; F32.A Depression, unspecified; E03.9 Hypothyroidism, unspecified; Z23 Encounter for immunization | CPT/HCPCS: 90471; 90472; 90656; 90715; 99212 ==